=== PATIENT | female | born 1940 | race American Indian/Alaskan Native ===

== ENCOUNTER 2016-08-16 13:42 | Observation (INO) | payer MEDICARE, OTHER ==
--- NOTE | 2016-08-16 14:14 | ED PDOC ---
Arrival/HPI - General Time Seen by Provider: 08/16/16 13:52 Historian: Patient - History of Present Illness Narrative History of Present Illness (Text): 08/16/16 14:10 A 76 year old female, whose past medical history includes hypertension, presents to the emergency department complaining of chest pain and abdominal pain worsening last night, intermittent for the last week. She describes pain as a dull pain. Patient is a poor historian. Patient reports nausea, cough, palpitations, shortness of breath, but denies any vomiting or any other complaints at this time. PMD: Dr. Cruz Time/Duration: 1 week Symptom Onset: Sudden Symptom Course: Unchanged Activities at Onset: Rest Context: Home Associated Symptoms (Text): nausea, cough, shortness of breath, heart palpitations Past Medical History - Provider Review Nursing Documentation Reviewed: Yes - Infectious Disease Hx of Infectious Diseases: None - Tetanus Immunization Tetanus Immunization: Unknown - Cardiac Hx Cardiac Disorders: Yes Hx Hypertension: Yes - Pulmonary Hx Respiratory Disorders: No - Neurological Hx Neurological Disorder: Yes Hx Seizures: Yes - HEENT Hx HEENT Disorder: Yes (wears glasses) - Renal Hx Renal Disorder: No - Endocrine/Metabolic Hx Endocrine Disorders: No - Hematological/Oncological Hx Blood Disorders: No - Integumentary Hx Dermatological Disorder: No - Musculoskeletal/Rheumatological Hx Musculoskeletal Disorders: Yes Hx Gout: Yes - Gastrointestinal Hx Gastrointestinal Disorders: No - Genitourinary/Gynecological Hx Genitourinary Disorders: Yes Hx Incontinence: Yes - Psychiatric Hx Psychophysiologic Disorder: No Hx Substance Use: No - Surgical History Hx Orthopedic Surgery: Yes Other/Comment: right foot bunyon surgery - Anesthesia Hx Anesthesia: Yes Hx Anesthesia Reactions: No Hx Malignant Hyperthermia: No - Suicidal Assessment Feels Threatened In Home Enviroment: No Family/Social History - Physician Review Nursing Documentation Reviewed: Yes Family/Social History: No Known Family HX Smoking Status: Never Smoked Hx Alcohol Use: No Hx Substance Use: No Hx Substance Use Treatment: No Allergies/Home Meds Allergies/Adverse Reactions: Allergies Penicillins Allergy (Verified 10/17/15 19:58) ANAPHYLAXIS Home Medications: Home Meds Medication Instructions Recorded Confirmed Metoprolol Tartrate [Lopressor] 50 mg PO DAILY 07/06/14 10/17/15 Aspirin [Ecotrin] 81 mg PO DAILY 04/06/15 10/17/15 Valsartan 160 mg PO DAILY 04/06/15 10/17/15 Review of Systems - Review of Systems Constitutional: Normal Eyes: Normal ENT: Normal Respiratory: SOB, Cough Cardiovascular: Chest Pain, Palpitations Gastrointestinal: Abdominal Pain, Nausea. absent: Vomiting Genitourinary Female: Normal Musculoskeletal: Normal Skin: Normal Neurological: Normal Endocrine: Normal Hemo/Lymphatic: Normal Psychiatric: Normal Physical Exam Vital Signs Reviewed: Yes Vital Signs Temp Pulse Pulse Resp BP BP Pulse Ox 08/16/16 18:21 77 16 134/76 98 08/16/16 16:46 76 18 132/75 99 08/16/16 15:13 79 18 134/79 99 08/16/16 13:48 98.7 F 84 16 136/85 99 08/16/16 13:43 98.2 F 84 84 16 136/85 136/85 99 Temperature: Afebrile Blood Pressure: Normal Pulse: Regular Respiratory Rate: Normal Appearance: Positive for: Well-Appearing, Non-Toxic, Comfortable Pain Distress: None Mental Status: Positive for: Alert and Oriented X 3 - Systems Exam Head: Present: Atraumatic, Normocephalic Pupils: Present: PERRL Extroacular Muscles: Present: EOMI Conjunctiva: Present: Normal Mouth: Present: Moist Mucous Membranes Neck: Present: Normal Range of Motion Respiratory/Chest: Present: Clear to Auscultation, Good Air Exchange. No: Respiratory Distress, Accessory Muscle Use Cardiovascular: Present: Regular Rate and Rhythm, Normal S1, S2. No: Murmurs Abdomen: Present: Tenderness (mild epigastric), Normal Bowel Sounds. No: Distention, Peritoneal Signs, Rebound, Guarding Back: Present: Normal Inspection Upper Extremity: Present: Normal Inspection. No: Cyanosis, Edema Lower Extremity: Present: Normal Inspection. No: Edema Neurological: Present: GCS=15, CN II-XII Intact, Speech Normal Skin: Present: Warm, Dry, Normal Color. No: Rashes Psychiatric: Present: Alert, Oriented x 3, Normal Insight, Normal Concentration Medical Decision Making ED Course and Treatment: 08/16/16 14:12 Impression: A 76 year old female with chest pain and abdominal pain. Differential Diagnosis included but are not limited to: Plan: -- EKG -- chest xray -- labs -- Urinalysis -- Protonix, Zofran -- Reassess and disposition Prior Visits: Notes and results from previous visits were reviewed. Patient last reported to the emergency on 10/17/15 for evaluation of arm and leg pain. Patient hospitalized for fever, arthralgia and myalgia. Progress Notes: Patient notes she took aspirin earlier today. EKG: Ordered, reviewed, and independently interpreted the EKG. Rate : 88 BPM Rhythm : NSR Interpretation : No ST/T wave changes chest xray: Creator : Jason Garnica MD 08/16/2016 15:40 IMPRESSION: No active disease. CT abd/pelvis Creator : Ilene Rodgers MD 08/16/2016 17:59 IMPRESSION: Moderate constipation. Suspected uterine fibroids. Two probable right hepatic lobe cysts. Additional findings as above. 08/16/16 19:28 will obs for chest pain. dr mata accepts. pt taking po bedside. 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 - Lab Interpretations Lab Results: 08/16/16 14:55 08/16/16 14:55 Lab Results 08/16/16 14:55: Urine Color Yellow, Urine Appearance Clear, Urine pH 6.5, Ur Specific [place] <= 1.005, Urine Protein Negative, Urine Glucose (UA) Negative, Urine Ketones Trace H, Urine Blood Trace-intact H, Urine Nitrate Negative, Urine Bilirubin Negative, Urine Urobilinogen 0.2, Ur Leukocyte Esterase Negative , Urine RBC 0 - 2, Urine WBC 0 - 2 08/16/16 14:55: PT 11.4, INR 1.06, APTT 28.5 08/16/16 14:55: WBC 5.2, RBC 4.75, Hgb 12.9, Hct 39.3, MCV 82.7, MCH 27.2, MCHC 32.8, RDW 14.0, Plt Count 223, MPV 9.5, Gran % 76.6 H, Lymph % (Auto) 17.2 L, [place] % (Auto) 5.4, Eos % (Auto) 0.6 L, Baso % (Auto) 0.2, Gran # 3.97, Lymph # 0.9 L, Mclean # 0.3, Eos # 0.0, Baso # 0.01 08/16/16 14:55: Sodium 140, Potassium 3.4 L, Chloride 102, Carbon Dioxide 29, Anion Gap 12, BUN 12, Creatinine 0.6, Est GFR ( Amer) > 60, Est GFR (Non- Af Amer) > 60, Random Glucose 88, Calcium 10.0, Magnesium 1.9, Total Bilirubin 0.7, AST 24, ALT 22, Alkaline Phosphatase 97, Lactate Dehydrogenase 548, Total Creatine Kinase 153, Troponin I < 0.01, Total Protein 8.7 H, Albumin 4.6, Globulin 4.2, Albumin/Globulin Ratio 1.1, Lipase 38 I have reviewed the lab results: Yes - RAD Interpretation Radiology Orders: 08/16/16 14:06 CHEST PORTABLE [RAD] Stat 08/16/16 15:46 ABD & PELVIS W/O PO OR IV CONT [CT] Stat - EKG Interpretation Interpreted by ED Physician: Yes Type: 12 lead EKG - Medication Orders Current Medication Orders: Acetaminophen (Tylenol 325mg Tab) 650 mg PO Q6H PRN PRN Reason: Fever >100.4 F Aspirin (Ecotrin) 81 mg PO DAILY LUISA Metoprolol Tartrate (Lopressor) 50 mg PO DAILY LUISA Ondansetron HCl (Zofran Inj) 4 mg IVP Q6H PRN PRN Reason: Nausea/Vomiting Oxycodone/Acetaminophen (Percocet 5/325 Mg Tab) 1 tab PO Q4H PRN PRN Reason: Pain, moderate (4-7) Stop: 08/19/16 19:02 Pantoprazole Sodium (Protonix Ec Tab) 40 mg PO 0630 LUISA Phenytoin Sodium (Dilantin) 100 mg PO TID LUISA Polyethylene Glycol (Miralax) 17 gm PO DAILY LUISA Sucralfate (Carafate Oral Susp) 1 gm PO [facility] LUISA Zolpidem Tartrate (Ambien) 5 mg PO HS PRN; Protocol PRN Reason: Insomnia Discontinued Medications Iohexol (Omnipaque 350 100 Ml) Confirm Administered Dose 350 mg .ROUTE .STK-MED ONE Stop: 08/16/16 15:52 Magnesium Citrate (Citrate Of Mag) 300 ml PO ONCE ONE Stop: 08/16/16 19:00 Ondansetron HCl (Zofran Inj) 4 mg IVP STAT STA Stop: 08/16/16 14:07 Last Admin: 08/16/16 15:24 Dose: 4 mg Pantoprazole Sodium (Protonix Inj) 40 mg IVP STAT STA Stop: 08/16/16 14:07 Last Admin: 08/16/16 15:25 Dose: 40 mg Tramadol HCl (Ultram) 50 mg PO TID PRN PRN Reason: Pain, Mild (1-3) - Scribe Statement The provider has reviewed the documentation as recorded by the Mihaelaibe Alexa Ochoa Provider Scribe Attestation: All medical record entries made by the Scribe were at my direction and personally dictated by me. I have reviewed the chart and agree that the record accurately reflects my personal performance of the history, physical exam, medical decision making, and the department course for this patient. I have also personally directed, reviewed, and agree with the discharge instructions and disposition. Disposition/Present on Arrival - Present on Arrival Any Indicators Present on Arrival: No History of DVT/PE: No History of Uncontrolled Diabetes: No Urinary Catheter: No History Surgical Site Infection Following: None - Disposition Have Diagnosis and Disposition been Completed?: Yes Diagnosis: Chest pain, Abdominal pain Disposition: HOME/ ROUTINE Disposition Time: 07:00 Patient Problems: Current Active Problems Problem Status Onset Abdominal pain Acute Chest pain Acute Condition: STABLE
[2016-08-16 15:01] LABS: ADD MANUAL DIFF? NO
[2016-08-16 15:06] LABS: PH,URINE 6.5 (4.7-8.0); URINE BILIRUBIN NEGATIVE (NEGATIVE); URINE BLOOD TRACE-INTACT (NEGATIVE); URINE GLUCOSE (UA) NEGATIVE (NEGATIVE); URINE KETONE TRACE mg/dL (NEGATIVE); URINE LEUKOCYTE ESTERASE NEGATIVE Leu/uL (NEGATIVE); URINE PROTEIN NEGATIVE mg/dL (<30 mg/dL); URINE UROBILINOGEN 0.2 E.U./dL (<1 E.U./dL)
[2016-08-16 15:07] LABS: BASO # 0.01 K/mm3 (0.0-2.0); BASO % 0.2 % (0.0-3.0); EOS % 0.6 % (1.5-5.0); GRAN # 3.97 (1.4-6.5); GRAN % 76.6 % (50.0-68.0); HEMATOCRIT 39.3 % (36.0-48.0); LYMPH # 0.9 (1.2-3.4); LYMPH % 17.2 % (22.0-35.0); MEAN CELL VOLUME 82.7 fL (80.0-105.0); MEAN CORPUSCULAR HEMOGLOBIN 27.2 pg (25.0-35.0); MEAN CORPUSCULAR HGB CONC 32.8 g/dl (31.0-37.0); MEAN PLATELET VOLUME 9.5 fl (7.0-11.0); MONO # 0.3 (0.1-0.6); MONO % 5.4 % (1.0-6.0); PLATELET COUNT 223 10^3/uL (120.0-450.0); WHITE BLOOD COUNT 5.2 10^3/ul (4.5-11.0)
[2016-08-16 15:08] LABS: URINE APPEARANCE CLEAR (CLEAR); URINE COLOR YELLOW (YELLOW)
[2016-08-16 15:10] LABS: URINE RBC 0 - 2 /hpf (0-2); URINE WBC 0 - 2 /hpf (0-6)
[2016-08-16 15:13] LABS: INR 1.06 (0.93-1.08); PARTIAL THROMBOPLASTIN TIME 28.5 Seconds (23.7-30.8)
[2016-08-16 15:19] LABS: ALB/GLOB RATIO 1.1 (1.1-1.8); ALKALINE PHOSPHATASE 97 U/L (38-133); ALT/SGPT 22 U/L (7-56); AST/SGOT 24 U/L (15-39); BILIRUBIN,TOTAL 0.7 mg/dL (0.2-1.3); BLOOD UREA NITROGEN 12 mg/dL (7-21); CARBON DIOXIDE 29 mmol/L (21-33); CHLORIDE 102 mmol/L (98-107); GFR AFRICAN-AMERICAN > 60; GLUCOSE,RANDOM 88 mg/dL (70-110); LIPASE 38 U/L (23-300); MAGNESIUM 1.9 mg/dL (1.7-2.2); POTASSIUM 3.4 mmol/L (3.6-5.0); SODIUM 140 mmol/L (132-148); TOTAL PROTEIN 8.7 g/dL (5.8-8.3)
[2016-08-16 15:31] LABS: TROPONIN I < 0.01 ng/mL
--- NOTE | 2016-08-16 15:39 | RAD ---
HISTORY: cp COMPARISON: 10/17/2015 FINDINGS: LUNGS: No active pulmonary disease. PLEURA: No significant pleural effusion identified, no pneumothorax apparent. CARDIOVASCULAR: Mild cardiomegaly OSSEOUS STRUCTURES: No significant abnormalities. VISUALIZED UPPER ABDOMEN: Normal. OTHER FINDINGS: None. IMPRESSION: No active disease.
[2016-08-16] MEDS ORDERED: Iohexol 350 MG/100 ML VIAL ONE (15:51)
--- NOTE | 2016-08-16 17:57 | CT ---
PROCEDURE: CT Abdomen and Pelvis without Oral or IV contrast. HISTORY: diffuse abd pain COMPARISON: CT abdomen and pelvis with oral and IV contrast performed 05/20/15 TECHNIQUE: Contiguous axial images of the abdomen and pelvis. No oral or IV contrast administered. Coronal and Sagittal reformats generated and reviewed. Radiation dose: Total exam DLP = 484.17 mGy-cm. This CT exam was performed using one or more of the following dose reduction techniques: Automated exposure control, adjustment of the mA and/or kV according to patient size, and/or use of iterative reconstruction technique. FINDINGS: There is limited evaluation of the solid organs without the administration of IV contrast. LOWER THORAX: Mild bibasilar atelectasis. No visible pleural effusion or pneumothorax. LIVER: At least 2 small right hepatic lobe hypodensities appear cystic. GALLBLADDER AND BILE DUCTS: Unremarkable unenhanced appearance. PANCREAS: Pancreatic duct appears top normal in diameter (approximately 3 mm). Unremarkable unenhanced appearance. SPLEEN: Unremarkable unenhanced appearance. ADRENALS: Unremarkable unenhanced appearance. KIDNEYS AND URETERS: No hydronephrosis or obstructing renal calculus. BLADDER: The urinary bladder appears unremarkable. REPRODUCTIVE: Uterus is present. Uterine calcifications, likely related to fibroids. APPENDIX: The appendix appears within normal limits of caliber. No secondary signs of acute appendicitis. BOWEL: The stomach is nondistended. Lack of oral contrast limits evaluation for bowel pathology. The bowel loops appear within normal limits of caliber without evidence of intestinal obstruction. Moderate constipation. PERITONEUM: No significant free fluid. No definite free air. LYMPH NODES: Bilateral prominent but sub cm inguinal adenopathy, nonspecific. VASCULATURE: No aortic aneurysm. BONES: Degenerative changes of the spine. Osseous demineralization. OTHER FINDINGS: Small fat containing umbilical hernia. IMPRESSION: Moderate constipation. Suspected uterine fibroids. Two probable right hepatic lobe cysts. Additional findings as above.
[2016-08-16] MEDS ORDERED: Magnesium Citrate Oral SOL (300 ml) PO ONE (18:59)
[2016-08-16] MEDS ORDERED: Oxycodone/Acetaminophen 5/325 mg Tab PO PRN (19:01)
--- NOTE | 2016-08-16 21:17 | HP ---
HISTORY OF PRESENT ILLNESS: The patient is a 76-year-old, seen and examined. Came to Emergency Room because of chest discomfort. She also has abdominal discomfort going off and on for the last day or two. Her abdominal pain started last night and she has dull abdominal pain. Complains of poo r appetite, does complain of having some nausea. She also had multiple vague complaints including co ugh, mild shortness of breath, but says she did not have any vomiting, no hemoptysis, no hematemesis. PAST MEDICAL HISTORY: 1. Hypertension. 2. Severe bilaterally knee osteoarthritis. 3. Degenerative disk disease. 4. Questionable seizure disorder. 5. Hyperlipidemia. The patient presented to Emergency Room multiple times with chest pain, had a cardiac catheterization done that shows no evidence of obstructive coronary artery disease, normal left ventricle; that was in 04/2015. She also had an endoscopy done in April of last year, which showed chronic inflammati on and reactive epithelial changes. No H. pylori. ALLERGIES: SHE IS ALLERGIC TO PENICILLIN. MEDICATIONS AT HOME: She is on tramadol 50 mg 3 times a day, valsartan 160 daily, Carafate. She is on Dilantin 100 mg 3 times a day, metoprolol 50 mg daily, and Mobic 15 mg daily, aspirin 81 daily, Pe pcid 20 mg twice a day. SOCIAL HISTORY: She is single, lives with her son. Denies smoking, drinking or alcohol use. REVIEW OF SYSTEMS: Significant for chest discomfort, abdominal discomfort. PHYSICAL EXAMINATION: GENERAL: She is awake and alert, communicative. VITAL SIGNS: She is afebrile, pulse , respirations 16, blood pressure 134/76. LUNGS: Bilateral fair airflow, no rhonchi or crackle. HEART: S1, S2 audible. ABDOMEN: Soft, nontender, no rebound, no guarding. NEUROLOGIC: The patient is awake and alert, able to communicate. Moves all extremities. No leg simone ma. LABORATORY DATA: WBC 5.2, hemoglobin 12.9, hematocrit 39.3, platelet 223. PT 11.4, INR 1.06. Chemi stry: Sodium 140, potassium 3.4, chloride 102, CO2 29, BUN 12, creatinine 0.6, blood sugar of 88. L FTs are within normal limits. Urine shows trace blood and trace ketones. She had CT scan of the abd omen and pelvis done that shows uterine fibroid and right hepatic lobe cyst, moderate constipation. X-ray of the chest is unremarkable. ASSESSMENT: 1. Chest pain seems to be atypical. Her cardiac cath done last year in April was unremarkable. 2. Hypertension. 3. Questionable seizure disorder. 4. Bilateral severe knee osteoarthritis. 5. Gastritis. PLAN: We will place the patient in observation. We will follow up cardiac enzymes. Cardiology con sult by Dr. Perez has been requested. Will start her on PPI and analgesic as needed. We will follow up patient in a.m. Epifanio Cruz MD cc: [phone] TT: 08/16/2016 21:17:20 ln
[2016-08-16] MEDS: Sucralfate 1 gm/10 ml Oral Susp UD PO SCH (22:13)
[2016-08-17 01:35] VITALS: BMI 29.2
[2016-08-17] MEDS: Pantoprazole 40 mg EC Tab PO SCH (06:22)
[2016-08-17 07:22] LABS: ADD MANUAL DIFF? NO
[2016-08-17 07:33] LABS: BASO # 0.02 K/mm3 (0.0-2.0); BASO % 0.4 % (0.0-3.0); EOS % 0.8 % (1.5-5.0); GRAN % 80.2 % (50.0-68.0); HEMATOCRIT 37.5 % (36.0-48.0); LYMPH # 0.6 (1.2-3.4); LYMPH % 13.1 % (22.0-35.0); MEAN CELL VOLUME 83.5 fL (80.0-105.0); MEAN CORPUSCULAR HEMOGLOBIN 27.2 pg (25.0-35.0); MEAN CORPUSCULAR HGB CONC 32.5 g/dl (31.0-37.0); MEAN PLATELET VOLUME 9.4 fl (7.0-11.0); MONO # 0.3 (0.1-0.6); MONO % 5.5 % (1.0-6.0); PLATELET COUNT 204 10^3/uL (120.0-450.0); RED CELL DISTRIBUTION WIDTH 14.2 % (11.5-14.5); WHITE BLOOD COUNT 4.9 10^3/ul (4.5-11.0)
[2016-08-17 07:35] LABS: ALB/GLOB RATIO 1.1 (1.1-1.8); ALKALINE PHOSPHATASE 86 U/L (38-133); ALT/SGPT 27 U/L (7-56); AST/SGOT 22 U/L (15-39); BILIRUBIN,TOTAL 0.5 mg/dL (0.2-1.3); BLOOD UREA NITROGEN 12 mg/dL (7-21); CALCIUM 9.3 mg/dL (8.4-10.5); CARBON DIOXIDE 32 mmol/L (21-33); CHLORIDE 104 mmol/L (98-107); GFR AFRICAN-AMERICAN > 60; GLUCOSE,RANDOM 81 mg/dL (70-110); MAGNESIUM 2.4 mg/dL (1.7-2.2); SODIUM 142 mmol/L (132-148); TOTAL PROTEIN 7.9 g/dL (5.8-8.3)
[2016-08-17] MEDS: Sucralfate 1 gm/10 ml Oral Susp UD PO SCH ×2 (07:50→21:35)
[2016-08-17 07:51] LABS: FREE T4 1.16 ng/dL (0.78-2.19)
[2016-08-17 08:06] LABS: THYROID STIMULATING HORMONE 0.4 mIU/mL (0.46-4.68)
[2016-08-17] MEDS: POLYETHYLENE GLYCOL 3350 17 GM/Dose PACKET PO SCH ×2 (09:08)
--- NOTE | 2016-08-17 10:07 | CARD ---
APPROVED REPORT EKG Measurement Heart [id number] <Conclusion> Normal sinus rhythm Left axis deviation PRWP, Possible anterior TX, old NSSTW changes No change
[2016-08-17] MEDS ORDERED: Naproxen 550 mg Tab PO STA (11:17)
[2016-08-17] MEDS: Naproxen 550 mg Tab PO SCH ×2 (11:39→17:24)
--- NOTE | 2016-08-17 15:37 | DS ---
The patient is a 76-year-old, seen and examined. She states she feels a little better. She has a co uple of bowel movements; still has some chest discomfort, more with movement. PHYSICAL EXAMINATION: VITAL SIGNS: She is afebrile, pulse 85, respirations 18, blood pressure 123/78. LUNGS: Bilateral fair airflow, no rhonchi or crackle. HEART: S1, S2 audible. ABDOMEN: Soft, nontender, no rebound, no guarding. NEUROLOGIC: She is awake and alert, able to communicate. Moves all extremities. LABORATORY EXAM: Sodium 142, potassium 4.0, chloride 104, CO2 32, BUN 12, creatinine 0.7, blood suga r of 81. Two sets of cardiac enzymes are negative. Urinalysis is unremarkable. Hypokalemia has bee n corrected. CT scan of the abdomen and pelvis showed constipation with right hepatic cyst and uteri ne fibroid. PLAN: The patient will be evaluated by member service specialist and her pain seems to be subsiding. Her abdomin al pain has improved. She is eating and tolerating. I will give her a dose of Naprosyn and after th e patient is seen by member service specialist and cleared, she can be discharged home later on in the afternoon a nd she should be followed up in office in a week or 2. Epifanio Cruz MD cc: [phone] TT: 08/17/2016 15:36:54 hi
[2016-08-17] MEDS ORDERED: Naproxen 550 mg Tab PO SCH (18:00)
[2016-08-18 00:57] VITALS: O2SAT 100
[2016-08-18] MEDS: Pantoprazole 40 mg EC Tab PO SCH (05:29)
[2016-08-18] MEDS: Sucralfate 1 gm/10 ml Oral Susp UD PO SCH ×2 (07:59→21:26)
[2016-08-18] MEDS: Naproxen 550 mg Tab PO SCH ×2 (09:53→17:28)
[2016-08-18] MEDS: POLYETHYLENE GLYCOL 3350 17 GM/Dose PACKET PO SCH (09:53)
--- NOTE | 2016-08-18 10:55 | PN ---
DATE: 08/18/2016 SUBJECTIVE: The patient complains of abdominal discomfort. She said she also is having reflux sympt oms. She has no complaints of any nausea, no vomiting. She does complain of headaches and fatigue. PHYSICAL EXAMINATION: VITAL SIGNS: Temperature is 98, pulse of 82, blood pressure 138/81, respirations 20. GENERAL: The patient comfortable, in no acute distress. HEENT: Anicteric sclerae. Moist mucosa. NECK: No JVD or adenopathy. CARDIAC: S1/S2. No murmurs. No rubs. Regular. RESPIRATORY: Clear to auscultation bilaterally. No wheezes, rales, or rhonchi. Good air entry. ABDOMEN: Bowel sounds are positive, soft, nontender, and nondistended. EXTREMITIES: No edema. Has 1+ pulses. LABORATORIES: White count of 4.9, hemoglobin 12.2. Creatinine 0.7. ASSESSMENT: 1. Constipation. 2. Gastroesophageal reflux disease. 3. Uterine fibroids. 4. Hypertension. 5. Osteoarthritis. PLAN: The patient is to go home today, but waiting for cardiac evaluation. The patient is on Dilant in for seizures. She is on metoprolol. She is going to continue on MiraLax for constipation. She d id have a good bowel movement according to her. The patient is on Ambien for sleep. She has 2 cardi ac enzymes which are negative. If cleared by cardiology, she may be discharged home today. Geraldo Thapa MD cc: [phone] TT: 08/18/2016 10:54:46 Confirmation # [id number] Dictation # [id number]
--- NOTE | 2016-08-18 15:54 | CON ---
DATE: 08/18/2016 (For Chris) HISTORY OF PRESENT ILLNESS: The patient is a 76-year-old woman who presented with atypical right-ashia ed chest pain. The patient states this feels like acid reflux. The patient has had extensive cardiac workup including cardiac catheterization last year, which shows no significant coronary blockages. PAST MEDICAL HISTORY: Is notable for hypertension with questionable peptic ulcer disease in the past . She denies diabetes mellitus. No previous myocardial infarction. SOCIAL HISTORY: Negative smoker. REVIEW OF SYSTEMS: Predominantly right-sided and epigastric discomfort. PHYSICAL EXAMINATION: VITAL SIGNS: Blood pressure is 141/94, the heart rate is in the 70's. NECK: Negative JVD. LUNGS: Without rales. HEART: Reveals S1, S2. EXTREMITIES: Without edema. Shows normal sinus rhythm with left anterior hemiblock. LABORATORIES: Reveal troponins that are negative x 2. The hemoglobin is 12.2. IMPRESSION: 1. Epigastric and right-sided chest pain. 2. No evidence for acute coronary syndrome. 3. Need to rule out peptic ulcer disease. 4. Hypertension. 5. History of a cardiac catheterization, which showed unremarkable coronary arteries. Given these findings, will give the patient a stat dose of Protonix. Will discontinue telemetry toda y. The patient may need a GI workup. Marcelino Chacon MD cc: [phone] TT: 08/18/2016 15:54:04 Confirmation # [id number] Dictation # [id number] dn
[2016-08-18 18:37] VITALS: RESP 20
[2016-08-19] MEDS: Pantoprazole 40 mg EC Tab PO SCH (05:48)
[2016-08-19] MEDS: Sucralfate 1 gm/10 ml Oral Susp UD PO SCH (08:10)
[2016-08-19] MEDS ORDERED: Magnesium Citrate Oral SOL (300 ml) PO ONE (10:06)
[2016-08-19] MEDS: Naproxen 550 mg Tab PO SCH (10:23)
[2016-08-19] MEDS: POLYETHYLENE GLYCOL 3350 17 GM/Dose PACKET PO SCH (10:24)
[2016-08-19 12:55] VITALS: BP 142/94; PULSE 66; TEMP 98.4
--- NOTE | 2016-08-19 15:03 | US ---
HISTORY: abdominal pain COMPARISON: None. TECHNIQUE: Sonographic evaluation of the abdomen. FINDINGS: LIVER: Measures cm. Normal echogenicity of the liver parenchyma. No mass. No intrahepatic bile duct dilatation. Scattered right hepatic cysts measuring up to 18 millimeters in the right hepatic lobe. GALLBLADDER: Unremarkable. No gallstones. COMMON BILE DUCT: Measures mm. No stones. No dilatation. PANCREAS: Unremarkable as visualized. No mass. No ductal dilatation. RIGHT KIDNEY: Measures cm. Normal echogenicity. No calculus, mass, or hydronephrosis. LEFT KIDNEY: Measures cm. Normal echogenicity. No calculus, mass, or hydronephrosis. SPLEEN: Normal in size and contour. No mass. AORTA: No aneurysmal dilatation. IVC: Unremarkable. OTHER FINDINGS: None. IMPRESSION: Hepatic cysts.
[2016-08-19 15:37] LABS: TROPONIN I < 0.01 ng/mL
--- NOTE | 2016-08-19 18:56 | CON ---
DATE: 08/19/2016 Seen and examined at the bedside earlier this morning. The chart was reviewed. REQUEST FOR CONSULT: For epigastric pain. HISTORY OF PRESENT ILLNESS: This is a 76-year-old female with a past medical history of hypertension and esophagitis, came to the Emergency Room with complaints of chest pain and abdominal pain. The p atient states it has been intermittent for about a week. No complaints of any nausea, shortness of b reath, does complain of poor appetite. No reports of any hematemesis, hemoptysis or weight loss. He r last endoscopy was done back in [address] Junior and that was done for epigastric abdominal pain , dyspepsia and heartburn. She was found to have LA grade B reflux esophagitis, a small hiatal herni a and nonbleeding erosive gastropathy. Biopsies were negative for any intestinal metaplasia or any H . pylori; it showed chronic inflammation. She did report having a colonoscopy many years ago. She f ollows up with Dr. Cruz in her outpatient office. The patient stated that she was given a prescri ption for a colonoscopy and had just had not scheduled that. The patient has history of cardiac work up including cardiac catheterization last year which was negative for any coronary blockage. PAST MEDICAL HISTORY: As stated above, hypertension, LA grade B esophagitis, nonbleeding erosive gas tropathy, biopsies negative osteoarthritis of the knees, and hyperlipidemia. PAST SURGICAL HISTORY: The patient denies any abdominal surgery. FAMILY HISTORY: Noncontributory at this time. SOCIAL HISTORY: Denies smoking, drinking alcohol or drug use. MEDICATIONS: Reviewed as per MAR. ALLERGIES: PENICILLIN. REVIEW OF SYSTEMS: Systems reviewed with positive findings, see HPI. VITAL SIGNS: Temperature is 98.3, blood pressure is 136/70, pulse 75, respirations 20, and 100% on r oom air. LABORATORY DATA: From 08/17, WBC is 4.9, hemoglobin is 12.2, hematocrit 37.5, platelets of 204. PT is from 08/16/2016 and that is 11.4, INR is 1.06, PTT 28.5. Sodium is from 08/17 and it is 142, K 4. 0 and on admission it was 3.4. This is improved. BUN 12, creatinine 0.7, magnesium 2.4. Her liver enzymes are within normal limits and troponin is negative x 2. She did have a lipase level on admiss ion; it was 38. Her free T4 is 1.16. TSH 3rd generation is low at 0.40. She did have a chest x-ray on admission and that was negative for pulmonary disease, pleural effusion or no pneumothorax; it sh owed mild cardiomegaly. CT scan on admission: Abdomen and pelvis without any contrast reported lack of oral contrast limits evaluation for bowel pathology, stomach is nondistended. The bowel loops ap pear within normal limits of caliber without evidence of intestinal obstruction. There is moderate c onstipation. Gallbladder and bile duct are unremarkable. Liver, there was at least 2 small right he patic lobe hypodensities that appear cystic. Bilateral prominence but , inguinal adenopathy non specific, and suspected uterine fibroids. Ultrasound was done this morning and the final report is n ot available yet. The preliminary report does show liver cysts x 2. The common bile duct measures 0 .65 mm. No gallstones are seen. PHYSICAL EXAMINATION: HEENT: Sclerae are anicteric. NECK: Supple. CARDIAC: S1, S2. LUNGS: Sounds are clear. ABDOMEN: With bowel sounds, soft. There is no tenderness at this time. No rebound, guarding, or or ganomegaly. EXTREMITIES: Positive pedal pulses, no edema. NEUROLOGIC: Awake, alert, and oriented. ASSESSMENT: Atypical chest pain, rule out any peptic ulcer disease. The patient has history of GERD . She does have a history of LA grade B esophagitis and nonerosive gastropathy, constipation, histor y of hypertension, osteoarthritis, and on CT scan and ultrasound reporting 2 simple liver cysts. PLAN: We discussed with the patient. We will give the patient a dose of magnesium citrate x 1. The patient states she takes Senokot at home, but we will give her a dose of magnesium citrate, and she is already on MiraLax and continue her on Protonix 40 mg daily, and follow up the final report of abd ominal ultrasound. Discussed with the patient and Dr. Cruz regarding elective outpatient endoscop y can be done and the patient would also benefit from a colonoscopy. The patient is to follow up lurdes Cruz and the patient to follow up in our outpatient office and we can schedule for outpatien t endoscopy and colonoscopy evaluation. Thank you for this consult and for allowing us to participate in your patient's care. The patient wa s seen and case discussed with Dr. Owens. Daphne OVIEDO cc: [id number] TT: 08/19/2016 18:56:12 Confirmation # [id number] Dictation # [id number] mn
--- NOTE | 2016-08-19 21:33 | DS ---
The patient is 76 years old. She is seen and examined sitting in chair. She states she feels a lot better. No chest pain, has epigastric discomfort, had a couple of bowel movements but feels soft and better, eating and tolerating. PHYSICAL EXAMINATION: VITAL SIGNS: She is afebrile, pulse 75, respirations 20, blood pressure 136/70. LUNGS: Bilateral fair airflow, no rhonchi or crackle. HEART: S1, S2 audible. ABDOMEN: Soft, nontender, no rebound, no guarding. NEUROLOGIC: The patient is awake and alert, communicative. Ambulates with a cane. ASSESSMENT: 1. Noncardiac chest pain. 2. Constipation. 3. Questionable peptic ulcer disease. 4. Seizure disorder. 5. Hypertension. 6. Bilateral knee osteoarthritis. PLAN: The patient just had magnesium citrate given. Will wait for the result, and she will be disch arged around 4:00 today and she will follow with me and Dr. Owens as outpatient. Epifanio Cruz MD cc: [id number] TT: 08/19/2016 21:32:04 cm
--- NOTE | 2016-08-19 21:36 | CON ---
DATE: 08/19/2016 This patient was seen and evaluated earlier today. This 76-year-old patient with a past medical hist ory of hypertension, arthritis, degenerative disk disease, seizure disorder, and dyslipidemia. initi ally admitted with abdominal pain, epigastric and right upper quadrant area, and mild shortness of br eath. The patient was evaluated by the cardiology, Dr. Chacon, who felt that the abdominal pain is pro bably noncardiac. No evidence of acute coronary syndrome. The patient did have a CT scan on admissi on which showed constipation and had a large amount of stool in the colon and also hepatic cyst. The patient continued to have abdominal discomfort and GI consultation was requested to evaluate this. The patient was admitted to the [facility], had an upper GI endoscopy done in 10/[address] Hines in and was found to have gastritis, H. pylori negative. The patient is still complaining of some dis comfort in the epigastric and right upper quadrant area. PHYSICAL EXAMINATION: ABDOMEN: Soft. There was tenderness present in the epigastric and right upper quadrant area. No re bound or guarding, no mass palpable. LABORATORY DATA: Review of the labs, hemoglobin 12.2, hematocrit 37.5, WBC is 4.9, platelets 204. C hemistry is essentially unremarkable. The sonogram was done which was reviewed and showed no gallsto tori. CBD normal. IMPRESSION: This 76-year-old patient admitted with abdominal pain and some shortness of breath and t he patient has persistent some discomfort in the epigastric and right upper quadrant area. CT sonogram done and reviewed. History of upper gastrointestinal endoscopy done in October reviewed. Be en evaluated by the med surg rn, suspect noncardiac. The differential diagnosis should include pept ic ulcer disease, erosive esophagitis and also colonic lesion to be considered. RECOMMENDATIONS: 1. A bottle of of magnesia today to clean out her bowels. 2. The patient was advised to take stool softeners and/or MiraLax on a regular basis at home. 3. Would benefit from elective EGD and colonoscopy. We will discuss with Dr. Cruz again. Thank you very much for allowing us to participate in the care of the patient. Nestor Owens MD cc: [id number] TT: 08/19/2016 21:35:49 Confirmation # [id number] Dictation # [id number] mn
--- NOTE | 2016-08-20 08:08 | PN ---
DATE: 08/19/2016 REASON FOR CONSULTATION: Cardiac evaluation, admitted with chest pain, atypical. BRIEF CLINICAL HISTORY: This is a 76-year-old female with past medical history significant for nonob structive coronary artery disease, essentially normal, status post cardiac catheterization, admitted with epigastric pain, abdominal pain and leg pain. Denies any chest pain. PAST MEDICAL HISTORY: Significant for hypertension, diabetes, hyperlipidemia, orthostatic, seizure d isorder, arthritis, history of gout. History of cardiac catheter[facility] by Dr. George Bowers at [facility] showed nonobstructive coronary artery disease, essentially normal cardiac catheterization, charles l coronaries, ejection fraction 55%. SOCIAL HISTORY: Denies any smoking. Denies any history of alcohol abuse. The patient had cardiac catheterization after the abnormal stress test in [place]. PREVIOUS CARDIAC WORKUP: As follows: The patient's stress test was abnormal, so patient underwent c ardiac catheterization at [facility] by Dr. George Bowers dated 01/03/2015 that sh ows essentially normal left main, LAD normal, circumflex normal, normal RCA, ejection fraction 55%, e ssentially normal coronaries, dated 01/03/2015. The patient had echocardiography done 07/06/2014 dimitris t showed ejection fraction 65%, normal LV wall motion, mild to moderate aortic regurgitation, mild to moderate mitral regurgitation, mild to moderate tricuspid regurg, RV systolic pressure 45. PHYSICAL EXAMINATION: VITAL SIGNS: Temperature afebrile, heart rate 60, blood pressure 121/72. HEENT: PERRLA. Extraocular muscles intact. NECK: Supple. No carotid bruits. No thyromegaly. CHEST: Clear to auscultation. HEART: S1, S2 regular. ABDOMEN: Soft. EXTREMITIES: Clubbing and cyanosis negative. BLOOD WORKUP: As follows: WBC 4.____, hemoglobin 12.2, hematocrit 37.5, platelet count 204. Chemis try shows sodium 140, potassium 4, chloride 104, carbon dioxide 32, anion gap of 10, BUN 12, creatini ne 0.7. No evidence of acute myocardial infarction. Atypical chest pain. Negative extensive cardiac workup. SUGGEST: Discontinue telemetry. No further cardiac workup is planned at this time. The patient had a repeat cardiac catheterization ____ by Dr. George Bowers at ____ dated 04/13/2015 that shows no angiographic evidence of obstructive coronary artery disease, preserved left ventricular function, s econd catheterization, so we will discontinue telemetry. No further cardiac workup is planned at thi s time. Thank you, Dr. Cruz, for providing the opportunity in taking care of this patient. Darrick Perez MD cc: [id number] TT: 08/19/2016 16:32:27 Confirmation # [id number] Dictation # [id number] mn
== END 2016-08-19 18:37 | disposition home or self-care (01) ==
LOC: ED 13:42 → ERH 18:38 → INTOOBSV 18:38 → ERH 22:37 → 2RNO 08-17 00:46
PROVIDERS: ADMIT Internal Medicine; ATTEND Internal Medicine
DX: R07.89 Other chest pain (principal); K21.0 Gastro-esophageal reflux disease with esophagitis; I25.10 Atherosclerotic heart disease of native coronary artery without angina pectoris; K59.00 Constipation, unspecified; G40.909 Epilepsy, unspecified, not intractable, without status epilepticus; I10 Essential (primary) hypertension; M17.0 Bilateral primary osteoarthritis of knee; D25.9 Leiomyoma of uterus, unspecified; K76.89 Other specified diseases of liver; E78.5 Hyperlipidemia, unspecified; K29.70 Gastritis, unspecified, without bleeding; M10.9 Gout, unspecified; E11.9 Type 2 diabetes mellitus without complications; I08.3 Combined rheumatic disorders of mitral, aortic and tricuspid valves
CPT/HCPCS: 36415; 71010; 74176; 76700; 80053; 81001; 82550; 83036; 83615; 83690; 83735; 84439; 84443; 84484; 85025; 85610; 85730; 93005; 96374; 96375; 96376; 99285; C9113; G0378; J2405; Q9967

== ENCOUNTER 2017-03-24 18:12 | Emergency (ER) | payer MEDICARE, OTHER ==
[2017-03-24 19:29] VITALS: PULSE 78; TEMP 98.6
[2017-03-24 19:55] LABS: BASO # 0.02 K/mm3 (0.0-2.0); BASO % 0.3 % (0.0-3.0); EOS # 0.1 (0.0-0.7); EOS % 1.2 % (1.5-5.0); GRAN # 5.33 (1.4-6.5); GRAN % 81.8 % (50.0-68.0); HEMOGLOBIN 10.1 g/dL (12.0-16.0); LYMPH # 0.7 (1.2-3.4); LYMPH % 10.9 % (22.0-35.0); MEAN CORPUSCULAR HEMOGLOBIN 25.6 pg (25.0-35.0); MEAN CORPUSCULAR HGB CONC 31.2 g/dl (31.0-37.0); MEAN PLATELET VOLUME 8.8 fl (7.0-11.0); MONO # 0.4 (0.1-0.6); MONO % 5.8 % (1.0-6.0); RBC 3.95 10^6/uL (3.5-6.1); RED CELL DISTRIBUTION WIDTH 14.1 % (11.5-14.5); WHITE BLOOD COUNT 6.5 10^3/ul (4.5-11.0)
[2017-03-24 20:48] LABS: ALB/GLOB RATIO 0.9 (1.1-1.8); ALBUMIN 3.9 g/dL (3.0-4.8); ALT/SGPT 21 U/L (7-56); AST/SGOT 33 U/L (14-36); BLOOD UREA NITROGEN 16 mg/dL (7-21); CALCIUM 9.6 mg/dL (8.4-10.5); GFR AFRICAN-AMERICAN > 60; GFR NON-AFRICAN AMERICAN > 60
[2017-03-24] MEDS ORDERED: Tmp-Smz 800 mg-160 mg DS Tab PO STA (21:13)
[2017-03-24 21:43] VITALS: BP 139/78; RESP 19; O2SAT 99
--- NOTE | 2017-03-24 21:56 | ED PDOC ---
Arrival/HPI - General Chief Complaint: Lower Extremity Problem/Injury Time Seen by Provider: 03/24/17 19:07 Historian: Patient - History of Present Illness Narrative History of Present Illness (Text): 03/24/17 19:21 A 76 year old female, whose past medical history includes hypertension, presents to the emergency department complaining of bilateral foot pain and itchiness increasing for past week. Patient reports also experiencing mild redness to both feet. Patient denies any fever, cough, shortness of breath, chest pain, trauma to feet, or any other complaints. PMD: Dr. Pati Hardin Time/Duration: 1 week Symptom Onset: Gradual Symptom Course: Unchanged Past Medical History - Provider Review Nursing Documentation Reviewed: Yes - Infectious Disease Hx of Infectious Diseases: None - Tetanus Immunization Tetanus Immunization: Unknown - Cardiac Hx Cardiac Disorders: Yes Hx Angina: No Hx Cardiac Arrhythmia: No Hx Circulatory Problems: No Hx Congestive Heart Failure: No Hx Heart Murmur: No Hx Heart Transplant: No Hx Hypertension: Yes Hx Internal Defibrillator: No Hx Mitral Valve Prolapse: No Hx Pacemaker: No Hx Peripheral Edema: No Hx Peripheral Vascular Disease: No - Pulmonary Hx Respiratory Disorders: No Hx Asthma: No Hx Bronchitis: No Hx Chronic Obstructive Pulmonary Disease (COPD): No Hx Emphysema: No Hx Pneumonia: No Hx Respiratory Aspiration: No Hx Respiratory Tract Infection: No Hx Sleep Apnea: No Hx Tuberculosis: No - Neurological Hx Neurological Disorder: Yes Hx Alzheimer's Disease: No HX Cerebrovascular Accident: No Hx Dementia: No Hx Dizziness: No Hx Meningitis: No Hx Migraine: No Hx Parkinson's Disease: No Hx Seizures: Yes Hx Transient Ischemic Attacks (TIA): No - HEENT Hx HEENT Disorder: Yes (wears glasses) Hx Blind: No Hx Cataracts: No Hx Deafness: No Hx Difficulty Chewing: No Hx Epistaxis: No Hx Glaucoma: No Hx Macular Degeneration: No - Renal Hx Renal Disorder: No Hx Dialysis: No Hx Kidney Stones: No Hx Neurogenic Bladder: No Hx Pyelonephritis: No Hx Renal Cancer: No Hx Renal Failure: No - Endocrine/Metabolic Hx Endocrine Disorders: No Hx Adrenal Cancer: No Hx Diabetes Insipidus: No Hx Diabetes Mellitus Type 1: No Hx Diabetes Mellitus Type 2: No Hx Hyperthyroidism: No Hx Hypothyroidism: No Hx Systemic Lupus Erythematosus: No - Hematological/Oncological Hx Blood Disorders: No Hx AIDS: No Hx Anemia: No Hx Cancer: No Hx Chemotherapy: No Hx Cirrhosis: No Hx Hemophilia: No Hx Hepatitis A: No Hx Hepatitis B: No Hx Hepatitis C: No Hx Metastasis: No Hx Shingles: No Hx Sickle Cell Disease: No Hx Unexplained Bleeding: No - Integumentary Hx Dermatological Disorder: No Hx Basal Cell Carcinoma: No Hx Eczema: No Hx Melanoma: No Hx Psoriasis: No Hx Squamous Cell Carcinoma: No - Musculoskeletal/Rheumatological Hx Musculoskeletal Disorders: Yes Hx Arthritis: Yes Hx Back Pain: Yes Hx Degenerative Joint Disease: No Hx Falls: No Hx Fractures: No Hx Gout: Yes Hx Herniated Disk: No Hx Myasthenia Gravis: No Hx Osteoarthritis: No Hx Osteomyelitis: No Hx Osteoporosis: No Hx Rhabdomyolysis: No Hx Spinal Stenosis: No Hx Unsteady Gait: No (uses a cane) - Gastrointestinal Hx Gastrointestinal Disorders: Yes (constipation) Hx Colostomy: No Hx Crohn's Disease: No Hx Diverticulitis: No Hx Gall Bladder Disease: No Hx Gastroesophageal Reflux: No Hx Gastrointestinal Ulcer: No Hx Ileostomy: No Hx Liver Failure: No Hx Pancreatitis: No HX Swallowing Problems: No - Genitourinary/Gynecological Hx Genitourinary Disorders: No Hx Hematuria: No Hx Incontinence: No Hx Prostate Problems: No Hx Sexually Transmitted Diseases: No Hx Urinary Tract Infection: No - Psychiatric Hx Psychophysiologic Disorder: No Hx Anxiety: No Hx Bipolar Disorder: No Hx Depression: No Hx Emotional Abuse: No Hx Hallucinations: No Hx Panic Disorder: No Hx Post Traumatic Stress Disorder: No Hx Psychosis: No Hx Physical Abuse: No Hx Schizophrenia: No Hx Sexual Abuse: No Hx Substance Use: No - Surgical History Hx Amputation: No Hx Appendectomy: No Hx Cardiac Catheterization: No Hx Cholecystectomy: No Hx Coronary Stent: No Hx Gastric Bypass Surgery: No Hx Hysterectomy: No Hx Joint Replacement: No Hx Kidney Transplant: No Hx Liver Transplant: No Hx Mastectomy: No Hx Musculoskeletal Surgery: No Hx Open Heart Surgery: No Hx Orthopedic Surgery: No Hx Splenectomy: No Hx Valve Replacement: No - Anesthesia Hx Anesthesia: Yes Hx Anesthesia Reactions: No Hx Malignant Hyperthermia: No - Suicidal Assessment Feels Threatened In Home Enviroment: No Family/Social History - Physician Review Nursing Documentation Reviewed: Yes Family/Social History: No Known Family HX Smoking Status: Former Smoker Hx Alcohol Use: No Hx Substance Use: No Hx Substance Use Treatment: No Allergies/Home Meds Allergies/Adverse Reactions: Allergies Penicillins Allergy (Verified 10/17/15 19:58) ANAPHYLAXIS Home Medications: Home Meds Medication Instructions Recorded Confirmed Metoprolol Tartrate [Lopressor] 50 mg PO DAILY 07/06/14 03/24/17 Aspirin [Ecotrin] 81 mg PO DAILY 04/06/15 03/24/17 Review of Systems - Physician Review All systems were reviewed & negative as marked: Yes - Review of Systems Constitutional: absent: Fevers, Other (no trauma to feet) Respiratory: absent: SOB, Cough Cardiovascular: absent: Chest Pain Musculoskeletal: Other (foot pain bilaterally) Skin: Pruritis (both feet), Other (mild redness to both feet) Physical Exam Vital Signs Reviewed: Yes Vital Signs Temp Pulse Resp BP Pulse Ox 03/24/17 21:41 78 19 139/78 99 03/24/17 19:24 98.6 F 78 18 148/88 100 Temperature: Afebrile Blood Pressure: Normal Pulse: Regular Respiratory Rate: Normal Appearance: Positive for: Well-Appearing Pain Distress: None Mental Status: Positive for: Alert and Oriented X 3 - Systems Exam Neck: Present: Normal Range of Motion Respiratory/Chest: Present: Clear to Auscultation, Good Air Exchange. No: Respiratory Distress, Accessory Muscle Use Cardiovascular: Present: Regular Rate and Rhythm, Normal S1, S2. No: Murmurs Abdomen: Present: Normal Bowel Sounds. No: Tenderness, Distention, Peritoneal Signs Back: Present: Normal Inspection Upper Extremity: Present: Normal Inspection. No: Cyanosis, Edema Lower Extremity: Present: Tenderness (diffused tenderness to touch), Erythema ( both feet (mild)) Neurological: Present: GCS=15, CN II-XII Intact, Speech Normal Skin: Present: Dry (dry skin is noted to both feet) Psychiatric: Present: Alert, Oriented x 3, Normal Insight, Normal Concentration Medical Decision Making ED Course and Treatment: 03/24/17 19:24 Impression: 76 year old female with bilateral foot pain and itchiness. Physical exam shows mild erythema bilaterally, diffused tenderness to touch, and dry skin is noted to both feet. Plan: -- Left Foot X-Ray -- Right Foot X-Ray -- Labs -- Toradol -- Bactrim -- Reassess and disposition Prior Visits: Notes and results from previous visits were reviewed. Patient was last seen in the emergency department on 08/16/2016 for chest pain and worsening intermittent abdominal pain. Patient was d/c home. Progress Notes: - Lab Interpretations Lab Results: 03/24/17 19:46 03/24/17 19:46 Lab Results 03/24/17 19:46: Sodium 143, Potassium 4.2, Chloride 105, Carbon Dioxide 27, Anion Gap 15, BUN 16, Creatinine 0.8, Est GFR ( Amer) > 60, Est GFR (Non- Af Amer) > 60, Random Glucose 95, Calcium 9.6, Total Bilirubin 0.5, AST 33, ALT 21, Alkaline Phosphatase 67, Total Protein 8.2, Albumin 3.9, Globulin 4.2, Albumin/Globulin Ratio 0.9 L 03/24/17 19:46: WBC 6.5 D, RBC 3.95, Hgb 10.1 L, Hct 32.4 L, MCV 82.0, MCH 25.6 , MCHC 31.2, RDW 14.1, Plt Count 367, MPV 8.8, Gran % 81.8 H, Lymph % (Auto) 10.9 L, Jefferson % (Auto) 5.8, Eos % (Auto) 1.2 L, Baso % (Auto) 0.3, Gran # 5.33, Lymph # 0.7 L, Jefferson # 0.4, Eos # 0.1, Baso # 0.02 I have reviewed the lab results: Yes - RAD Interpretation Radiology Orders: 03/24/17 19:24 FOOT LEFT 3 VIEWS ROUTINE [RAD] Stat FOOT RIGHT 2ND DIGIT (TOE) [RAD] Stat - Medication Orders Current Medication Orders: Discontinued Medications Ketorolac Tromethamine (Toradol) 30 mg IVP STAT STA Stop: 03/24/17 19:26 Last Admin: 03/24/17 19:46 Dose: 30 mg MAR Pain Assessment Document 03/24/17 19:46 RD (Rec: 03/24/17 19:46 RD [id number]) Pain Reassessment Is this a pain reassessment? No Sleep Is patient sleeping during reassessment? No Presence of Pain Presence of Pain Yes IVP Administration Document 03/24/17 19:46 RD (Rec: 03/24/17 19:46 RD [id number]) Charges for Administration # of IVP Administrations 1 Trimethoprim/Sulfamethoxazole (Bactrim Ds Tab) 1 tab PO STAT STA PRN Reason: Protocol Stop: 03/24/17 21:14 Last Admin: 03/24/17 21:37 Dose: 1 tab - Scribe Statement The provider has reviewed the documentation as recorded by the Nancy Acuna Provider Mihaelaibe Attestation: All medical record entries made by the Scribe were at my direction and personally dictated by me. I have reviewed the chart and agree that the record accurately reflects my personal performance of the history, physical exam, medical decision making, and the department course for this patient. I have also personally directed, reviewed, and agree with the discharge instructions and disposition. Disposition/Present on Arrival - Present on Arrival Any Indicators Present on Arrival: No History of DVT/PE: No History of Uncontrolled Diabetes: No Urinary Catheter: No History of Decub. Ulcer: No History Surgical Site Infection Following: None - Disposition Have Diagnosis and Disposition been Completed?: Yes Diagnosis: Cellulitis Disposition: HOME/ ROUTINE Disposition Time: 20:50 Condition: GOOD Discharge Instructions (ExitCare): Cellulitis (ED) Additional Instructions: Thank you for letting us take care of you today. The emergency medical care you received today was directed at your acute symptoms. If you were prescribed any medication, please fill it and take as directed. It may take several days for your symptoms to resolve. Return to the Emergency Department if your symptoms worsen, do not improve, or if you have any other problems. Please contact your doctor or call one of the physicians/clinics you have been referred to that are listed on the Patient Visit Information form that is included in your discharge packet. Bring any paperwork you were given at discharge with you along with any medications you are taking to your follow up visit. Our treatment cannot replace ongoing medical care by a primary care provider (PCP) outside of the emergency department. Thank you for allowing the [facility] team to be part of your care today. Follow up with your doctor in 1-2 days for re-evaluation and further management. Prescriptions: Ibuprofen [Motrin] 600 mg PO Q6 PRN #20 tab PRN Reason: Pain, Moderate (4-7) Sulfamethoxazole/Trimethoprim [Bactrim DS 800 mg-160 mg] 1 tab PO BID #10 tab Referrals: Pati Hardin MD [Primary Care Provider] - Follow up with primary Forms: [employer]US ([place]ux[place]ish)
--- NOTE | 2017-03-25 08:20 | RAD ---
PROCEDURE: Left Foot Radiographs. HISTORY: r/o fx COMPARISON: [facility] FINDINGS: BONES: No fracture. Plantar calcaneal spur JOINTS: Normal. SOFT TISSUES: Normal. OTHER FINDINGS: None. IMPRESSION: Plantar calcaneal spur. Otherwise unremarkable.
--- NOTE | 2017-03-25 08:29 | RAD ---
PROCEDURE: Right 2nd toe HISTORY: r/o fx COMPARISON: Not available TECHNIQUE: Three views right foot attention 2nd digit FINDINGS: There is no evidence of fracture or dislocation. The joint spaces and articular surfaces of the 2nd digit are intact. There is evidence of prior surgery at the 1st metatarsal phalangeal articulation with the joint spacer or prosthesis present. IMPRESSION: No evidence of fracture.
== END 2017-03-24 21:41 | disposition home or self-care (01) ==
LOC: ED 18:12
DX: L03.116 Cellulitis of left lower limb (principal); L03.115 Cellulitis of right lower limb; I10 Essential (primary) hypertension; Z87.891 Personal history of nicotine dependence
CPT/HCPCS: 73630; 73660; 80053; 85025; 96374; 99284; J1885

== ENCOUNTER 2017-12-03 00:40 | Observation (INO) | payer MEDICARE, OTHER ==
[2017-12-03 00:50] VITALS: BMI 35.9
[2017-12-03] MEDS ORDERED: Morphine 2 mg/ml ISec IVP STA ×2 (01:07→02:41)
--- NOTE | 2017-12-03 01:07 | ED PDOC ---
Arrival/HPI - General Chief Complaint: Back Pain Time Seen by Provider: 12/03/17 00:51 Historian: Patient - History of Present Illness Narrative History of Present Illness (Text): 12/03/17 01:07 Lizett Foss is a 77 year old female, whose past medical history includes hypertension, severe bilateral knee osteoarthritis, degenerative disc disease, questionable seizure, and hyperlipidemia, who presents to the ED complaining of left-sided flank pain. Patient states she was cleaning earlier today at home and may have "pulled" a muscle. Patient now complaining of worsening left-sided flank pain radiating to her back and abdomen. Patient denies any fever, chills, urinary symptoms, vomiting, diarrhea, or any other complaints. PMD: Dr. Cruz Symptom Onset: Gradual Symptom Course: Unchanged Activities at Onset: Light Context: Home Past Medical History - Provider Review Nursing Documentation Reviewed: Yes - Infectious Disease Hx of Infectious Diseases: None - Tetanus Immunization Tetanus Immunization: Unknown - Cardiac Hx Cardiac Disorders: Yes Hx Angina: No Hx Cardiac Arrhythmia: No Hx Circulatory Problems: No Hx Congestive Heart Failure: No Hx Heart Murmur: No Hx Heart Transplant: No Hx Hypertension: Yes Hx Internal Defibrillator: No Hx Mitral Valve Prolapse: No Hx Pacemaker: No Hx Peripheral Edema: No Hx Peripheral Vascular Disease: No - Pulmonary Hx Respiratory Disorders: No Hx Asthma: No Hx Bronchitis: No Hx Chronic Obstructive Pulmonary Disease (COPD): No Hx Emphysema: No Hx Pneumonia: No Hx Respiratory Aspiration: No Hx Respiratory Tract Infection: No Hx Sleep Apnea: No Hx Tuberculosis: No - Neurological Hx Neurological Disorder: Yes Hx Alzheimer's Disease: No HX Cerebrovascular Accident: No Hx Dementia: No Hx Dizziness: No Hx Meningitis: No Hx Migraine: No Hx Parkinson's Disease: No Hx Seizures: Yes Hx Transient Ischemic Attacks (TIA): No - HEENT Hx HEENT Disorder: Yes (wears glasses) Hx Blind: No Hx Cataracts: No Hx Deafness: No Hx Difficulty Chewing: No Hx Epistaxis: No Hx Glaucoma: No Hx Macular Degeneration: No - Renal Hx Renal Disorder: No Hx Dialysis: No Hx Kidney Stones: No Hx Neurogenic Bladder: No Hx Pyelonephritis: No Hx Renal Cancer: No Hx Renal Failure: No - Endocrine/Metabolic Hx Endocrine Disorders: No Hx Adrenal Cancer: No Hx Diabetes Insipidus: No Hx Diabetes Mellitus Type 1: No Hx Diabetes Mellitus Type 2: No Hx Hyperthyroidism: No Hx Hypothyroidism: No Hx Systemic Lupus Erythematosus: No - Hematological/Oncological Hx Blood Disorders: No Hx AIDS: No Hx Anemia: No Hx Cancer: No Hx Chemotherapy: No Hx Cirrhosis: No Hx Hemophilia: No Hx Hepatitis A: No Hx Hepatitis B: No Hx Hepatitis C: No Hx Metastasis: No Hx Shingles: No Hx Sickle Cell Disease: No Hx Unexplained Bleeding: No - Integumentary Hx Dermatological Disorder: No Hx Basal Cell Carcinoma: No Hx Eczema: No Hx Melanoma: No Hx Psoriasis: No Hx Squamous Cell Carcinoma: No - Musculoskeletal/Rheumatological Hx Musculoskeletal Disorders: Yes Hx Arthritis: Yes Hx Back Pain: Yes Hx Degenerative Joint Disease: No Hx Falls: No Hx Fractures: No Hx Gout: Yes Hx Herniated Disk: No Hx Myasthenia Gravis: No Hx Osteoarthritis: No Hx Osteomyelitis: No Hx Osteoporosis: No Hx Rhabdomyolysis: No Hx Spinal Stenosis: No Hx Unsteady Gait: No (uses a cane) - Gastrointestinal Hx Gastrointestinal Disorders: Yes (constipation) Hx Colostomy: No Hx Crohn's Disease: No Hx Diverticulitis: No Hx Gall Bladder Disease: No Hx Gastroesophageal Reflux: No Hx Gastrointestinal Ulcer: No Hx Ileostomy: No Hx Liver Failure: No Hx Pancreatitis: No HX Swallowing Problems: No - Genitourinary/Gynecological Hx Genitourinary Disorders: No Hx Hematuria: No Hx Incontinence: No Hx Prostate Problems: No Hx Sexually Transmitted Diseases: No Hx Urinary Tract Infection: No - Psychiatric Hx Psychophysiologic Disorder: No Hx Anxiety: No Hx Bipolar Disorder: No Hx Depression: No Hx Emotional Abuse: No Hx Hallucinations: No Hx Panic Disorder: No Hx Post Traumatic Stress Disorder: No Hx Psychosis: No Hx Physical Abuse: No Hx Schizophrenia: No Hx Sexual Abuse: No Hx Substance Use: No - Surgical History Hx Amputation: No Hx Appendectomy: No Hx Cardiac Catheterization: No Hx Cholecystectomy: No Hx Coronary Stent: No Hx Gastric Bypass Surgery: No Hx Hysterectomy: No Hx Joint Replacement: No Hx Kidney Transplant: No Hx Liver Transplant: No Hx Mastectomy: No Hx Musculoskeletal Surgery: No Hx Open Heart Surgery: No Hx Orthopedic Surgery: No Hx Splenectomy: No Hx Valve Replacement: No - Anesthesia Hx Anesthesia: Yes Hx Anesthesia Reactions: No Hx Malignant Hyperthermia: No - Suicidal Assessment Feels Threatened In Home Enviroment: No Family/Social History - Physician Review Nursing Documentation Reviewed: Yes Family/Social History: Unknown Family HX Smoking Status: Former Smoker Hx Alcohol Use: No Hx Substance Use: No Hx Substance Use Treatment: No Allergies/Home Meds Allergies/Adverse Reactions: Allergies Penicillins Allergy (Verified 10/17/15 19:58) ANAPHYLAXIS Home Medications: Home Meds Medication Instructions Recorded Confirmed Metoprolol Tartrate [Lopressor] 50 mg PO DAILY 07/06/14 12/03/17 Aspirin [Ecotrin] 81 mg PO DAILY 04/06/15 12/03/17 Review of Systems - Physician Review All systems were reviewed & negative as marked: Yes - Review of Systems Constitutional: Normal. absent: Fevers Eyes: Normal ENT: Normal Respiratory: Normal. absent: SOB, Cough Cardiovascular: Normal. absent: Chest Pain Gastrointestinal: Abdominal Pain Genitourinary Female: Normal. absent: Dysuria, Frequency, Hematuria, Urine O utput Changes Musculoskeletal: Back Pain. absent: Neck Pain Skin: Normal. absent: Rash Neurological: Normal. absent: Headache, Dizziness Endocrine: Normal Hemo/Lymphatic: Normal Psychiatric: Normal Physical Exam Vital Signs Reviewed: Yes Vital Signs Temp Pulse Resp BP Pulse Ox 12/03/17 07:05 64 22 104/62 99 12/03/17 06:00 98.2 F 79 18 118/69 95 12/03/17 05:16 63 23 110/53 L 99 12/03/17 03:14 65 24 108/44 L 100 12/03/17 00:50 97.8 F 80 18 113/62 98 Temperature: Afebrile Blood Pressure: Normal Pulse: Regular Respiratory Rate: Normal Appearance: Positive for: Well-Appearing, Non-Toxic, Comfortable Mental Status: Positive for: Alert and Oriented X 3 - Systems Exam Head: Present: Atraumatic, Normocephalic Pupils: Present: PERRL Extroacular Muscles: Present: EOMI Conjunctiva: Present: Normal Mouth: Present: Moist Mucous Membranes Neck: Present: Normal Range of Motion Respiratory/Chest: Present: Clear to Auscultation, Good Air Exchange. No: Respiratory Distress, Accessory Muscle Use Cardiovascular: Present: Regular Rate and Rhythm, Normal S1, S2. No: Murmurs Abdomen: No: Tenderness, Distention, Peritoneal Signs Back: Present: CVA Tenderness (Left CVA tenderness) Upper Extremity: Present: Normal Inspection. No: Cyanosis, Edema Lower Extremity: Present: Normal Inspection. No: Edema Neurological: Present: GCS=15, CN II-XII Intact, Speech Normal Skin: Present: Warm, Dry, Normal Color. No: Rashes Psychiatric: Present: Alert, Oriented x 3, Normal Insight, Normal Concentration Medical Decision Making ED Course and Treatment: 12/03/17 01:07 Impression: 77 year old female brought in for left flank pain. Plan: -- CT Abdomen and Pelvis -- EKG -- Labs, amylase, lipase -- Urinalysis -- Zofran -- Morphine -- Reassess and disposition Prior Visits: Notes and results from previous visits were reviewed. Progress Notes: Reviewed EKG, NSR at [address]pm[address] LAD. Non-specific ST/T wave changes. 12/03/17 02:50 CT Abdomen and Pelvis reviewed, shows: 1. There is diffuse diverticulosis noted involving all colonic segments. No evidence of acute diverticulitis. 2. 2cm rigut hepatic lobe cyst is seen. 3. Thoracolumbar levoscoliosis 4. No acute pathology. 12/03/17 04:[address] Cruz, who is aware and agrees with plan. Accepts pt in to her service. - Lab Interpretations Lab Results: 12/03/17 02:05 12/03/17 02:05 Lab Results 12/03/17 02:15: Urine Color Yellow, Urine Appearance Clear, Urine pH 6.5, Ur Specific Clarence 1.010, Urine Protein Negative, Urine Glucose (UA) Negative, Urine Ketones Negative, Urine Blood Trace-intact H, Urine Nitrate Negative, Urine Bilirubin Negative, Urine Urobilinogen 0.2, Ur Leukocyte Esterase Negative, Urine RBC 0 - 2, Urine WBC 0 - 2, Ur Epithelial Cells 0 - 2, Urine Bacteria Occ 12/03/17 02:05: Sodium 140, Potassium 2.9 L* D, Chloride 97 L, Carbon Dioxide 35 H, Anion Gap 11, BUN 41 H, Creatinine 0.9, Est GFR ( Amer) > 60, Est GFR (Non-Af Amer) > 60, Random Glucose 107, Calcium 9.4, Total Bilirubin 0.3, AST 42 H D, ALT 22, Alkaline Phosphatase 126 D, Lactate Dehydrogenase 577, Total Creatine Kinase 305 H, CK-MB (CK-2) 1.4, CK-MB (CK-2) % Cancelled, Troponin I < 0.01, Total Protein 8.0, Albumin 4.1, Globulin 3.9, Albumin/Globulin Ratio 1.1, Amylase 215 H, Lipase 87 12/03/17 02:05: PT 12.6 H, INR 1.10, APTT 31.0 12/03/17 02:05: WBC 6.9, RBC 4.07, Hgb 10.8 L, Hct 34.6 L, MCV 85.0 D, MCH 26.5, MCHC 31.2, RDW 13.7, Plt Count 212, MPV 9.9, Gran % 72.6 H, Lymph % (Auto) 19.8 L, Robeson % (Auto) 5.9, Eos % (Auto) 1.6, Baso % (Auto) 0.1, Gran # 5.03, Lymph # (Auto) 1.4, Robeson # (Auto) 0.4, Eos # (Auto) 0.1, Baso # (Auto) 0.01 I have reviewed the lab results: Yes - RAD Interpretation Radiology Orders: 12/03/17 01:07 ABD & PELVIS W/O PO OR IV CONT [CT] Stat Precision Assembler Bench: Radiologist - EKG Interpretation Interpreted by ED Physician: Yes Type: 12 lead EKG - Medication Orders Current Medication Orders: Discontinued Medications Aspirin (Ecotrin) 81 mg PO DAILY [facility] Last Admin: 12/04/17 10:19 Dose: 81 mg Cyclobenzaprine HCl (Flexeril) 5 mg PO TID [facility] Last Admin: 12/04/17 10:18 Dose: 5 mg Potassium Chloride (Potassium Chloride 20 Meq/100 Ml) 20 meq in 100 mls @ 50 mls/hr IVPB Q2H LUISA Stop: 12/03/17 06:59 Last Admin: 12/03/17 05:15 Dose: 50 mls/hr eMAR Start Stop Document 12/03/17 05:15 CNR (Rec: 12/03/17 05:15 CNR [id number]) Intravenous Solution Start Date 12/03/17 Start Time 05:15 Magnesium Citrate (Citrate Of Mag) 150 ml PO ONCE ONE Stop: 12/04/17 10:36 Last Admin: 12/04/17 11:55 Dose: Not Given Non-Admin Reason: Patient Refused Methylprednisolone (Solu-Medrol) 60 mg IVP ONCE ONE Stop: 12/03/17 14:01 Last Admin: 12/03/17 14:22 Dose: 60 mg IVP Administration Document 12/03/17 14:22 DSZ (Rec: 12/03/17 14:22 [place] [id number]) Charges for Administration # of IVP Administrations 1 Methylprednisolone (Solu-Medrol) 40 mg IV Q12 [facility] Last Admin: 12/04/17 10:18 Dose: 40 mg eMAR Start Stop Document 12/04/17 10:18 DSZ (Rec: 12/04/17 10:18 Z [place] [id number]) Intravenous Solution Start Date 12/04/17 Start Time 10:18 Metoprolol Tartrate (Lopressor) 50 mg PO DAILY [facility] Last Admin: 12/04/17 10:19 Dose: 50 mg MAR Pulse and Blood Pressure Document 12/04/17 10:19 DSZ (Rec: 12/04/17 10:19 Z [place] [id number]) Pulse Pulse Rate (60-90) 64 Blood Pressure Blood Pressure (100/60-150/90) 115/60 Morphine Sulfate (Morphine) 2 mg IVP STAT STA Stop: 12/03/17 01:08 Last Admin: 12/03/17 02:08 Dose: 2 mg MAR Pain Assessment Document 12/03/17 02:08 CNR (Rec: 12/03/17 02:09 CNR [id number]) Pain Reassessment Is this a pain reassessment? No IVP Administration Document 12/03/17 02:08 CNR (Rec: 12/03/17 02:09 CNR [id number]) Charges for Administration # of IVP Administrations 1 Morphine Sulfate (Morphine) 2 mg IVP STAT STA Stop: 12/03/17 02:42 Last Admin: 12/03/17 02:46 Dose: 2 mg MAR Pain Assessment Document 12/03/17 02:46 JMR (Rec: 12/03/17 02:47 JMR [id number]) Pain Reassessment Is this a pain reassessment? No Sleep Is patient sleeping during reassessment? No Presence of Pain Presence of Pain Yes Pain Scale Used Protocol: PSCALES Pain Scale Used Numeric Location Left, Right or Bilateral Left Upper or Lower Lower Pain Location Body Site Abdomen Description Description Sharp Intensity of Pain at present 8 Acceptable Level of Pain 0 Pain Behavior Moaning Irritability Restlessness Aggravating Factors ADL's IVP Administration Document 12/03/17 02:46 JMR (Rec: 12/03/17 02:47 JMR [id number]) Charges for Administration # of IVP Administrations 1 Morphine Sulfate (Morphine) 2 mg IVP ONCE ONE Stop: 12/03/17 14:10 Last Admin: 12/03/17 14:22 Dose: 2 mg MAR Pain Assessment Document 12/03/17 14:22 DSZ (Rec: 12/03/17 14:23 DSZ [place] [id number]) Pain Reassessment Is this a pain reassessment? No Sleep Is patient sleeping during reassessment? No Presence of Pain Presence of Pain Yes Pain Scale Used Protocol: [facility] Pain Scale Used Numeric Location Left, Right or Bilateral Left Upper or Lower Lower Pain Location Body Site Abdomen Description Description Intermittent Intensity of Pain at present 9 Acceptable Level of Pain 3 Pain Behavior Facial Grimacing Alleviating Factors/Management Medication Techniques Alleviating Factors Medication IVP Administration Document 12/03/17 14:22 DSZ (Rec: 12/03/17 14:23 DSZ [place] [id number]) Charges for Administration # of IVP Administrations 1 Re-Assess: MAR Pain Assessment Document 12/03/17 15:22 DSZ (Rec: 12/03/17 18:28 DSZ [place] [id number]) Pain Reassessment Is this a pain reassessment? Yes Sleep Is patient sleeping during reassessment? No Pain Scale Used Protocol: [facility] Pain Scale Used Numeric Location Left, Right or Bilateral Left Pain Location Body Site Abdomen Description Description Intermittent Intensity of Pain at present 6 Acceptable Level of Pain 2 Pain Behavior Withdrawal from Touch Restlessness Alleviating Factors/Management Medication Techniques Alleviating Factors Medication Naproxen (Anaprox Ds) 550 mg PO BID LUISA Last Admin: 12/04/17 10:19 Dose: 550 mg Ondansetron HCl (Zofran Inj) 4 mg IVP STAT STA Stop: 12/03/17 01:08 Last Admin: 12/03/17 02:09 Dose: 4 mg IVP Administration Document 12/03/17 02:09 CNR (Rec: 12/03/17 02:09 CNR [id number]) Charges for Administration # of IVP Administrations 1 Ondansetron HCl (Zofran Inj) 4 mg IVP ONCE ONE Stop: 12/03/17 14:32 Last Admin: 12/03/17 17:43 Dose: 4 mg IVP Administration Document 12/03/17 17:43 [facility] (Rec: 12/03/17 17:43 [id number] Charges for Administration # of IVP Administrations 1 Oxycodone/Acetaminophen (Percocet 5/325 Mg Tab) 1 tab PO Q6H PRN PRN Reason: Pain, moderate (4-7) Stop: 12/06/17 17:56 Last Admin: 12/03/17 18:27 Dose: 1 tab [facility] Pain Assessment Document 12/03/17 18:27 DSZ (Rec: 12/03/17 18:28 [facility] [id number]) Pain Reassessment Is this a pain reassessment? No Sleep Is patient sleeping during reassessment? No Presence of Pain Presence of Pain Yes Pain Scale Used Protocol: PSCALES Pain Scale Used Numeric Location Left, Right or Bilateral Left Upper or Lower Lower Pain Location Body Site Abdomen Description Description Intermittent Intensity of Pain at present 9 Acceptable Level of Pain 2 Pain Behavior Withdrawal from Touch Restlessness Aggravating Factors Contant Alleviating Factors/Management Medication Techniques Alleviating Factors Medication Re-Assess: [facility] Pain Assessment Document 12/03/17 19:27 Z (Rec: 12/04/17 10:18 Z [id number]) Pain Reassessment Is this a pain reassessment? Yes Sleep Is patient sleeping during reassessment? No Presence of Pain Presence of Pain No Location Left, Right or Bilateral Left Pain Location Body Site Abdomen Description Description Intermittent Intensity of Pain at present 2 Acceptable Level of Pain 4 Pain Behavior Withdrawal from Touch Alleviating Factors/Management Medication Techniques Alleviating Factors Medication Pantoprazole Sodium (Protonix Ec Tab) 40 mg PO 0600 [facility] Last Admin: 12/04/17 05:07 Dose: 40 mg Phenytoin Sodium (Dilantin) 100 mg PO QAM [facility] Last Admin: 12/04/17 10:19 Dose: 100 mg Potassium Chloride (K-Dur 20 Meq Er Tab) 40 meq PO ONCE ONE Stop: 12/03/17 08:42 Last Admin: 12/03/17 09:49 Dose: 40 meq Potassium Chloride (K-Dur 20 Meq Er Tab) 40 meq PO ONCE ONE Stop: 12/03/17 11:26 Last Admin: 12/03/17 14:19 Dose: 40 meq Tramadol HCl (Ultram) 50 mg PO TID PRN PRN Reason: Pain, moderate (4-7) Last Admin: 12/03/17 09:48 Dose: 50 mg [facility] Pain Assessment Document 12/03/17 09:48 DSZ (Rec: 12/03/17 09:49 DSZ [id number]) Pain Reassessment Is this a pain reassessment? No Sleep Is patient sleeping during reassessment? No Presence of Pain Presence of Pain Yes Pain Scale Used Protocol: PSCALES Pain Scale Used Numeric Location Left, Right or Bilateral Left Pain Location Body Site Back Description Description Intermittent Intensity of Pain at present 9 Acceptable Level of Pain 3 Pain Behavior Withdrawal from Touch Aggravating Factors Contant Alleviating Factors/Management Medication Techniques Alleviating Factors Medication Re-Assess: [facility] Pain Assessment Document 12/03/17 10:48 DSZ (Rec: 12/03/17 11:25 DSZ [id number]) Pain Reassessment Is this a pain reassessment? No Sleep Is patient sleeping during reassessment? No Presence of Pain Presence of Pain Yes Pain Scale Used Protocol: PSCALES Pain Scale Used Numeric Location Left, Right or Bilateral Left Upper or Lower Upper Pain Location Body Site Abdomen Description Description Intermittent Intensity of Pain at present 5 Acceptable Level of Pain 2 Pain Behavior Withdrawal from Touch Aggravating Factors Contant Alleviating Factors/Management Medication Techniques Alleviating Factors Medication - Scribe Statement The provider has reviewed the documentation as recorded by the Scribsahil Agosto All medical record entries made by the Scribe were at my direction and personally dictated by me. I have reviewed the chart and agree that the record accurately reflects my personal performance of the history, physical exam, medical decision making, and the department course for this patient. I have also personally directed, reviewed, and agree with the discharge instructions and disposition. Disposition/Present on Arrival - Present on Arrival Any Indicators Present on Arrival: No History of DVT/PE: No History of Uncontrolled Diabetes: No Urinary Catheter: No History of Decub. Ulcer: No History Surgical Site Infection Following: None - Disposition Have Diagnosis and Disposition been Completed?: Yes Diagnosis: Arthralgia, Back pain Disposition: HOSPITALIZED Disposition Time: 05:00 Condition: FAIR
[2017-12-03 02:41] LABS: TROPONIN I < 0.01 ng/mL
[2017-12-03 02:46] LABS: PH,URINE 6.5 (4.7-8.0); URINE BILIRUBIN NEGATIVE (NEGATIVE); URINE BLOOD TRACE-INTACT (NEGATIVE); URINE GLUCOSE (UA) NEGATIVE (NEGATIVE); URINE LEUKOCYTE ESTERASE NEGATIVE Leu/uL (NEGATIVE); URINE PROTEIN NEGATIVE mg/dL (<30 mg/dL); URINE UROBILINOGEN 0.2 E.U./dL (<1 E.U./dL)
[2017-12-03 02:49] LABS: BASO # 0.01 K/mm3 (0.0-2.0); BASO % 0.1 % (0.0-3.0); EOS # 0.1 (0.0-0.7); EOS % 1.6 % (1.5-5.0); GRAN # 5.03 (1.4-6.5); GRAN % 72.6 % (50.0-68.0); HEMOGLOBIN 10.8 g/dL (12.0-16.0); INR 1.1; LYMPH # 1.4 (1.2-3.4); LYMPH % 19.8 % (22.0-35.0); MEAN CORPUSCULAR HEMOGLOBIN 26.5 pg (25.0-35.0); MEAN CORPUSCULAR HGB CONC 31.2 g/dl (31.0-37.0); MEAN PLATELET VOLUME 9.9 fl (7.0-11.0); MONO # 0.4 (0.1-0.6); MONO % 5.9 % (1.0-6.0); PROTHROMBIN TIME 12.6 SECONDS (9.4-12.5); RBC 4.07 10^6/uL (3.5-6.1); RED CELL DISTRIBUTION WIDTH 13.7 % (11.5-14.5); WHITE BLOOD COUNT 6.9 10^3/ul (4.5-11.0)
[2017-12-03 02:50] LABS: URINE APPEARANCE CLEAR (CLEAR); URINE COLOR YELLOW (YELLOW)
[2017-12-03 02:52] LABS: ALB/GLOB RATIO 1.1 (1.1-1.8); ALBUMIN 4.1 g/dL (3.0-4.8); ALT/SGPT 22 U/L (7-56); AMYLASE 215 U/L (35-125); AST/SGOT 42 U/L (14-36); BLOOD UREA NITROGEN 41 mg/dL (7-21); CALCIUM 9.4 mg/dL (8.4-10.5); GFR NON-AFRICAN AMERICAN > 60; LIPASE 87 U/L (23-300)
[2017-12-03 02:57] LABS: URINE BACTERIA OCC (NEG); URINE EPITHELIAL CELLS 0 - 2 /hpf (0-5); URINE RBC 0 - 2 /hpf (0-2); URINE WBC 0 - 2 /hpf (0-6)
[2017-12-03 03:02] LABS: CK-MB 1.4 ng/mL (0.0-3.6)
[2017-12-03] MEDS ORDERED: Potassium Chloride 20 mEq ER Tab PO ONE ×2 (08:41→11:25)
--- NOTE | 2017-12-03 09:08 | CARD ---
APPROVED REPORT Date of service: 12/03/2017 EKG Measurement Heart [id number] <Conclusion> Normal sinus rhythm with 1st degree AVB Left axis deviation PRWP NSSTW changes
--- NOTE | 2017-12-03 10:02 | CT ---
Date of service: 12/03/2017 PROCEDURE: CT Abdomen and Pelvis without intravenous contrast HISTORY: left flank pain COMPARISON: 08/16/2016. CT abdomen pelvis. 08/19/2016 abdominal ultrasound TECHNIQUE: Unenhanced. Neither IV nor oral contrast adminstered Radiation dose: Total exam DLP = 1017.25 mGy-cm. This CT exam was performed using one or more of the following dose reduction techniques: Automated exposure control, adjustment of the mA and/or kV according to patient size, and/or use of iterative reconstruction technique. FINDINGS: LOWER THORAX: Unremarkable. LIVER: Hepatic steatosis. Stable right hepatic cyst. No gross lesion or ductal dilatation. GALLBLADDER AND BILE DUCTS: Unremarkable. PANCREAS: Unremarkable. No gross lesion or ductal dilatation. SPLEEN: Unremarkable. ADRENALS: Unremarkable. No mass. KIDNEYS AND URETERS: Unremarkable. No hydronephrosis. No solid mass. VASCULATURE: Unremarkable. No aortic aneurysm. BOWEL: Diverticulosis without an acute inflammatory component or other associated pathologic process. APPENDIX: Unremarkable. Normal appendix. PERITONEUM: Unremarkable. No free fluid. No free air. LYMPH NODES: Unremarkable. No enlarged lymph nodes. BLADDER: Unremarkable. REPRODUCTIVE: Unremarkable. BONES: No acute fracture. OTHER FINDINGS: None. IMPRESSION: No acute findings related to/accounting for the clinical presentation. Additional benign and/or incidental findings described above. No significant interval changes identified. Concordant results (preliminary interpretation) provided by [employer]. Procedure Completed: 01:51. Preliminary ([facility]Rad) Report: Dictated and Authenticated: 02:43 Final Interpretation: 10:01.
[2017-12-03 11:10] LABS: BLOOD UREA NITROGEN 28 mg/dL (7-21); GFR NON-AFRICAN AMERICAN > 60
[2017-12-03] MEDS ORDERED: Barium Sulfate Susp 2.1% w/v, 2.0% w/w 450 mL Bottle PO ONE (12:06)
[2017-12-03] MEDS ORDERED: Morphine 2 mg/ml ISec IVP ONE (14:09)
[2017-12-03] MEDS: Pantoprazole 40 mg EC Tab PO SCH (14:24)
[2017-12-03 14:55] VITALS: RESP 20; TEMP 98.8; O2SAT 96
--- NOTE | 2017-12-03 16:10 | CT ---
Date of service: 12/03/2017 PROCEDURE: CT Abdomen and Pelvis with contrast HISTORY: Abdominal pain, intractable back pain. COMPARISON: December 03, 2017. CT abdomen and pelvis. Time of the most recent examination: 01:51 TECHNIQUE: Oral contrast only. Radiation dose: Total exam DLP = 925.37 mGy-cm. This CT exam was performed using one or more of the following dose reduction techniques: Automated exposure control, adjustment of the mA and/or kV according to patient size, and/or use of iterative reconstruction technique. FINDINGS: LOWER THORAX: Platelike atelectasis/scarring again identified. LIVER: No significant interval change compared to the prior examination(s).No gross lesion or ductal dilatation. GALLBLADDER AND BILE DUCTS: Unremarkable. PANCREAS: Unremarkable. No gross lesion or ductal dilatation. SPLEEN: Unremarkable. ADRENALS: Unremarkable. No mass. KIDNEYS AND URETERS: Unremarkable. No hydronephrosis. No solid mass. VASCULATURE: Unremarkable. No aortic aneurysm. BOWEL: Diverticulosis without an acute inflammatory component or other associated pathologic process. APPENDIX: Normal appendix. PERITONEUM: Unremarkable. No free fluid. No free air. LYMPH NODES: Unremarkable. No enlarged lymph nodes. BLADDER: Unremarkable. REPRODUCTIVE: Unremarkable. BONES: No acute fracture. OTHER FINDINGS: None. IMPRESSION: No acute findings related to/accounting for the clinical presentation. Additional benign and/or incidental findings described above. No significant interval change compared to the prior examination(s).
--- NOTE | 2017-12-03 16:43 | RAD ---
Date of service: 12/03/2017 PROCEDURE: Radiographs of the Lumbar Spine. HISTORY: back pain COMPARISON: No prior. FINDINGS: BONES: Diffuse osteopenia. Normal alignment and vertebral body heights. DISC SPACES: Unremarkable. OTHER FINDINGS: None. IMPRESSION: No acute findings related to/accounting for the clinical presentation.
[2017-12-03] MEDS ORDERED: Oxycodone/Acetaminophen 5/325 mg Tab PO PRN (17:55)
[2017-12-03] MEDS: Naproxen 550 mg Tab PO SCH (18:27)
[2017-12-03 19:58] LABS: PH,URINE 6.5 (4.7-8.0); URINE BILIRUBIN NEGATIVE (NEGATIVE); URINE BLOOD TRACE-INTACT (NEGATIVE); URINE GLUCOSE (UA) NEGATIVE (NEGATIVE); URINE LEUKOCYTE ESTERASE NEGATIVE Leu/uL (NEGATIVE); URINE PROTEIN NEGATIVE mg/dL (<30 mg/dL); URINE UROBILINOGEN 0.2 E.U./dL (<1 E.U./dL)
[2017-12-03 20:04] LABS: URINE APPEARANCE CLEAR (CLEAR); URINE COLOR YELLOW (YELLOW)
[2017-12-03 20:16] LABS: URINE BACTERIA FEW (NEG); URINE RBC 0 - 2 /hpf (0-2)
[2017-12-03] MEDS: MethylPREDNISolone 40 mg Vial IV SCH (21:24)
--- NOTE | 2017-12-04 03:45 | HP ---
HISTORY OF PRESENT ILLNESS: The patient is 77 years old states she tried to lease picker something and after that when she laid in bed, she felt sharp pain in her left flank area radiating to her left lower abdomen. She also states she did a lot of cleaning in the [employer] building and at that point, she was feeling some pulling sensation in her left flank and left lower abdominal area. When she laid down to sleep, her pain got worse, she could not even change her side in the bed. Denies any fever or chills. Denied any nausea or vomiting. No history of constipation. No rectal bleeding. PAST MEDICAL HISTORY: Significant for; 1. Hypertension. 2. Bilateral knee osteoarthritis. 3. Degenerative disc disease. 4. History of seizure disorder. 5. Hyperlipidemia. ALLERGIES: SHE IS ALLERGIC TO PENICILLIN. MEDICATIONS AT HOME: She is on Dilantin 100 mg three times a day, aspirin 81 daily, Flexeril 5 mg three times a day, she is on metoprolol 50 mg daily, and valsartan 160 daily. SOCIAL HISTORY: She lives by herself. Denies smoking, drinking or alcohol use. REVIEW OF SYSTEMS: Significant for left flank pain. PHYSICAL EXAMINATION: GENERAL: She is awake and alert, crying in pain. VITAL SIGNS: She is afebrile, pulse 61, respirations 20, blood pressure . LUNGS: Bilateral fair airflow. No rhonchi or crackle. HEART: S1, S2 audible. ABDOMEN: Soft. Left lower quadrant palpable discomfort. NEUROLOGICAL: She is awake and alert, able to communicate. LABORATORY EXAM: WBC 6.9, hemoglobin 10.8, hematocrit 34.6, platelet of 212. PT 12.6. INR 1.1. Chemistry: Sodium 139, potassium 3.4, chloride 100, CO2 of 33, BUN 28, creatinine 0.7, blood sugar of 118. Urinalysis is unremarkable. She had CT scan of the abdomen and pelvis done with p.o. contrast, there is no acute findings related to clinical presentation. ASSESSMENT: 1. Intractable back pain radiating to her left lower quadrant. 2. Hypokalemia. 3. Hypertension. 4. History of seizure disorder. PLAN: We will keep the patient on Naprosyn. Start her on Flexeril. Give her Percocet as needed. Started her on small dose of steroid. We will reevaluate the patient in a.m. Epifanio Cruz MD [facility] # [id number]
[2017-12-04] MEDS: Pantoprazole 40 mg EC Tab PO SCH (05:07)
[2017-12-04 07:38] LABS: BLOOD UREA NITROGEN 24 mg/dL (7-21); CALCIUM 9.4 mg/dL (8.4-10.5); GFR NON-AFRICAN AMERICAN > 60
[2017-12-04] MEDS: MethylPREDNISolone 40 mg Vial IV SCH (10:18)
[2017-12-04] MEDS: Naproxen 550 mg Tab PO SCH (10:19)
[2017-12-04 10:22] VITALS: BP 115/60; PULSE 64
[2017-12-04] MEDS ORDERED: Magnesium Citrate Oral SOL (300 ml) PO ONE (10:35)
--- NOTE | 2017-12-05 04:02 | DS ---
HISTORY OF PRESENT ILLNESS: Patient is 77 years old. Seen and examined. Doing a lot better. Sitting on the chair. Eating and tolerating. No nausea, vomiting or diarrhea. Pain is still there, but much better. PHYSICAL EXAMINATION: VITAL SIGNS: Patient is afebrile. Pulse 64, respirations 20, blood pressure 115/60. LUNGS: Bilateral good airflow. No rhonchi or crackles. HEART: S1, S2 audible. ABDOMEN: Soft, nontender. No rebound, no guarding. NEUROLOGIC: Patient is awake, alert, oriented, communicative. LABORATORY DATA: Sodium 138, potassium 4.3, chloride 100, CO2 30, BUN 24, creatinine 0.7, blood sugar of 113. CT scan of the abdomen and pelvis is done. There is no evidence of diverticulitis. ASSESSMENT: 1. Lumbosacral radiculopathy. 2. Intractable back pain, seems to be improving. 3. History of hypertension. 4. Seizure disorder. PLAN: The patient is being discharged home on Celebrex 200 daily, Zanaflex 2 mg three times a day, prednisone 20 mg twice a day for 5 days, and Percocet as needed. She will follow up in the office. Epifanio Cruz MD
== END 2017-12-04 14:30 | disposition home or self-care (01) ==
LOC: ED 00:40 → ERH 05:16 → 5RNO 07:13
PROVIDERS: ADMIT Internal Medicine; ATTEND Internal Medicine
DX: M54.17 Radiculopathy, lumbosacral region (principal); M54.9 Dorsalgia, unspecified; E87.6 Hypokalemia; I10 Essential (primary) hypertension; G40.909 Epilepsy, unspecified, not intractable, without status epilepticus; M17.0 Bilateral primary osteoarthritis of knee; Z79.82 Long term (current) use of aspirin
CPT/HCPCS: 36415; 72110; 74176; 80048; 80053; 81001; 82150; 82550; 82553; 83615; 83690; 83735; 84484; 85025; 85610; 85730; 87086; 93005; 96374; 96375; 96376; 99284; G0378; J2270; J2405; J2920; J2930; J3480

== ENCOUNTER 2017-12-19 09:59 | Observation (INO) | payer MEDICARE ==
[2017-12-19 10:28] VITALS: BMI 35.2
--- NOTE | 2017-12-19 11:02 | ED PDOC ---
Arrival/HPI - General Historian: Patient - History of Present Illness Narrative History of Present Illness (Text): 12/19/17 10:58 77 year old female presents today with a 2 day history of left-sided chest pain. Patient states the pain is located in the left anterior chest occasionally radiates to the left shoulder/clavicle. Patient states she initially thought it was gas but this pain does not seem to be going away. Patient denies any change in appetite. She denies nausea or vomiting. She denies back pain. Denies headaches dizziness or weakness. No fevers or chills. Patient denies cough. Patient denies any recent trauma or injury. Patient states 2 days ago she was just sitting there and suddenly developed the pain for which she describes as an achy stinging sensation. Time/Duration: Other (2 days) <Maryan Eldridge - Last Filed: 12/19/17 17:38> <Son Evans - Last Filed: 12/22/17 18:52> - General Chief Complaint: Chest Pain Time Seen by Provider: 12/19/17 10:25 Past Medical History - Provider Review Nursing Documentation Reviewed: Yes - Travel History Have you recently traveled outside [place] w/in the past 3 mons?: No - Infectious Disease Hx of Infectious Diseases: None - Tetanus Immunization Tetanus Immunization: Unknown - Cardiac Hx Cardiac Disorders: Yes Hx Angina: No Hx Cardiac Arrhythmia: No Hx Circulatory Problems: No Hx Congestive Heart Failure: No Hx Heart Murmur: No Hx Heart Transplant: No Hx Hypertension: Yes Hx Internal Defibrillator: No Hx Mitral Valve Prolapse: No Hx Pacemaker: No Hx Peripheral Edema: No Hx Peripheral Vascular Disease: No - Pulmonary Hx Respiratory Disorders: No Hx Asthma: No Hx Bronchitis: No Hx Chronic Obstructive Pulmonary Disease (COPD): No Hx Emphysema: No Hx Pneumonia: No Hx Respiratory Aspiration: No Hx Respiratory Tract Infection: No Hx Sleep Apnea: No Hx Tuberculosis: No - Neurological Hx Neurological Disorder: Yes Hx Alzheimer's Disease: No HX Cerebrovascular Accident: No Hx Dementia: No Hx Dizziness: No Hx Meningitis: No Hx Migraine: No Hx Parkinson's Disease: No Hx Seizures: Yes Hx Transient Ischemic Attacks (TIA): No - HEENT Hx HEENT Disorder: Yes (wears glasses) Hx Blind: No Hx Cataracts: No Hx Deafness: No Hx Difficulty Chewing: No Hx Epistaxis: No Hx Glaucoma: No Hx Macular Degeneration: No - Renal Hx Renal Disorder: No Hx Dialysis: No Hx Kidney Stones: No Hx Neurogenic Bladder: No Hx Pyelonephritis: No Hx Renal Cancer: No Hx Renal Failure: No - Endocrine/Metabolic Hx Endocrine Disorders: No Hx Adrenal Cancer: No Hx Diabetes Insipidus: No Hx Diabetes Mellitus Type 1: No Hx Diabetes Mellitus Type 2: No Hx Hyperthyroidism: No Hx Hypothyroidism: No Hx Systemic Lupus Erythematosus: No - Hematological/Oncological Hx Blood Disorders: No Hx AIDS: No Hx Anemia: No Hx Cancer: No Hx Chemotherapy: No Hx Cirrhosis: No Hx Hemophilia: No Hx Hepatitis A: No Hx Hepatitis B: No Hx Hepatitis C: No Hx Metastasis: No Hx Shingles: No Hx Sickle Cell Disease: No Hx Unexplained Bleeding: No - Integumentary Hx Dermatological Disorder: No Hx Basal Cell Carcinoma: No Hx Eczema: No Hx Melanoma: No Hx Psoriasis: No Hx Squamous Cell Carcinoma: No - Musculoskeletal/Rheumatological Hx Musculoskeletal Disorders: Yes Hx Arthritis: Yes Hx Back Pain: Yes Hx Degenerative Joint Disease: No Hx Falls: No Hx Fractures: No Hx Gout: Yes Hx Herniated Disk: No Hx Myasthenia Gravis: No Hx Osteoarthritis: No Hx Osteomyelitis: No Hx Osteoporosis: No Hx Rhabdomyolysis: No Hx Spinal Stenosis: No Hx Unsteady Gait: No (uses a cane) - Gastrointestinal Hx Gastrointestinal Disorders: Yes (constipation) Hx Colostomy: No Hx Crohn's Disease: No Hx Diverticulitis: No Hx Gall Bladder Disease: No Hx Gastroesophageal Reflux: No Hx Gastrointestinal Ulcer: No Hx Ileostomy: No Hx Liver Failure: No Hx Pancreatitis: No HX Swallowing Problems: No - Genitourinary/Gynecological Hx Genitourinary Disorders: No Hx Hematuria: No Hx Incontinence: No Hx Prostate Problems: No Hx Sexually Transmitted Diseases: No Hx Urinary Tract Infection: No - Psychiatric Hx Psychophysiologic Disorder: No Hx Anxiety: No Hx Bipolar Disorder: No Hx Depression: No Hx Emotional Abuse: No Hx Hallucinations: No Hx Panic Disorder: No Hx Post Traumatic Stress Disorder: No Hx Psychosis: No Hx Physical Abuse: No Hx Schizophrenia: No Hx Sexual Abuse: No Hx Substance Use: No - Surgical History Hx Amputation: No Hx Appendectomy: No Hx Cardiac Catheterization: No Hx Cholecystectomy: No Hx Coronary Stent: No Hx Gastric Bypass Surgery: No Hx Hysterectomy: No Hx Joint Replacement: No Hx Kidney Transplant: No Hx Liver Transplant: No Hx Mastectomy: No Hx Musculoskeletal Surgery: No Hx Open Heart Surgery: No Hx Orthopedic Surgery: No Hx Splenectomy: No Hx Valve Replacement: No - Anesthesia Hx Anesthesia: Yes Hx Anesthesia Reactions: No Hx Malignant Hyperthermia: No - Suicidal Assessment Feels Threatened In Home Enviroment: No <Maryan Eldridge - Last Filed: 12/19/17 17:38> Family/Social History - Physician Review Nursing Documentation Reviewed: Yes Family/Social History: Unknown Family HX Smoking Status: Former Smoker Hx Alcohol Use: No Hx Substance Use: No Hx Substance Use Treatment: No <Maryan Eldridge - Last Filed: 12/19/17 17:38> Allergies/Home Meds <Maryan Eldridge - Last Filed: 12/19/17 17:38> <Son Evans - Last Filed: 12/22/17 18:52> Allergies/Adverse Reactions: Allergies Penicillins Allergy (Verified 12/19/17 18:31) ANAPHYLAXIS Home Medications: Home Meds Medication Instructions Recorded Confirmed RX: Metoprolol Tartrate [Lopressor] 50 mg PO DAILY 07/06/14 12/19/17 RX: Aspirin [Ecotrin] 81 mg PO DAILY 04/06/15 12/19/17 Review of Systems - Review of Systems Constitutional: absent: Fatigue, Fevers Respiratory: absent: SOB, Cough Cardiovascular: Chest Pain. absent: Palpitations Gastrointestinal: absent: Abdominal Pain, Constipation, Diarrhea, Nausea, Vomiting Genitourinary Female: absent: Dysuria, Frequency, Hematuria Musculoskeletal: absent: Arthralgias, Back Pain, Neck Pain Skin: absent: Rash, Pruritis Neurological: absent: Headache, Dizziness Psychiatric: absent: Anxiety, Depression, Suicidal Ideation <Maryan Eldridge - Last Filed: 12/19/17 17:38> Physical Exam Vital Signs Reviewed: Yes Vital Signs Temp Pulse Resp BP Pulse Ox 12/19/17 10:17 98.6 F 76 20 100/67 96 Temperature: Afebrile Blood Pressure: Normal Pulse: Regular Respiratory Rate: Normal Appearance: Positive for: Well-Appearing, Non-Toxic, Comfortable Pain Distress: None Mental Status: Positive for: Alert and Oriented X 3 - Systems Exam Head: Present: Atraumatic Mouth: Present: Moist Mucous Membranes Neck: Present: Normal Range of Motion Respiratory/Chest: Present: Clear to Auscultation, Good Air Exchange. No: Respiratory Distress, Accessory Muscle Use Cardiovascular: Present: Regular Rate and Rhythm, Normal S1, S2. No: Murmurs Abdomen: Present: Normal Bowel Sounds. No: Tenderness, Distention, Peritoneal Signs, Rebound, Guarding Back: Present: Normal Inspection Upper Extremity: Present: Normal ROM Lower Extremity: Present: Normal ROM Neurological: Present: GCS=15, Speech Normal Skin: Present: Warm, Dry, Normal Color. No: Rashes Psychiatric: Present: Alert, Oriented x 3 <Maryan Eldridge - Last Filed: 12/19/17 17:38> Vital Signs Temp Pulse Pulse Resp BP Pulse Ox 12/19/17 17:46 98.2 F 65 18 132/55 L 95 12/19/17 15:25 98.2 F 71 18 129/62 96 12/19/17 13:30 98.3 F 68 18 122/64 97 12/19/17 10:30 69 12/19/17 10:17 98.6 F 76 20 100/67 96 <Son Evans - Last Filed: 12/22/17 18:52> Medical Decision Making ED Course and Treatment: 12/19/17 11:04 pt with chest pain ; cbc; wnl cmp; bun; 28 cr; 0.8 trop: wnl ekg; NSR at 73 b/m , left axis deviation, LVH cxr wnl ASA PO toradol and protonix given IV pt reassessment; pt with continued cP heart score; 4. case discussed with Dr. zamora. will Admit observational status to Tele for chest pain r/o acs. consult dr. fairchild. impression; chest pain Admit observational status to tele - RAD Interpretation Radiology Orders: 12/19/17 10:26 CHEST PORTABLE [RAD] Stat <Maryan Eldridge - Last Filed: 12/19/17 17:38> - Lab Interpretations Lab Results: 12/19/17 11:00 12/19/17 11:00 Lab Results 12/19/17 11:50: Urine Color Yellow, Urine Appearance Clear, Urine pH 6.5, Ur Specific [place] 1.010, Urine Protein Negative, Urine Glucose (UA) Negative, Urine Ketones Negative, Urine Blood Trace-intact H, Urine Nitrate Negative, Urine Bilirubin Negative, Urine Urobilinogen 0.2, Ur Leukocyte Esterase Trace H, Urine RBC 2 - 5, Urine WBC 5 - 10, Ur Epithelial Cells 6 - 8, Urine Bacteria Many 12/19/17 11:00: Sodium 139, Potassium 3.5 L, Chloride 98, Carbon Dioxide 34 H, Anion Gap 10, BUN 25 H, Creatinine 0.8, Est GFR ( Amer) > 60, Est GFR (Non-Af Amer) > 60, Random Glucose 106, Calcium 9.0, Magnesium 1.9, Total Bilirubin 0.2, AST 30, ALT 24, Alkaline Phosphatase 105, Lactate Dehydrogenase 546, Total Creatine Kinase 113, Troponin I < 0.01, Total Protein 7.7, Albumin 4.0, Globulin 3.7, Albumin/Globulin Ratio 1.1, Lipase 66 12/19/17 11:00: WBC 5.8, RBC 3.91, Hgb 10.5 L, Hct 33.4 L, MCV 85.4, MCH 26.9, MCHC 31.4, RDW 13.9, Plt Count 228, MPV 9.0, Gran % 74.1 H, Lymph % (Auto) 17.1 L, [place] % (Auto) 6.7 H, Eos % (Auto) 1.9, Baso % (Auto) 0.2, Gran # 4.30, Lymph # (Auto) 1.0 L, [place] # (Auto) 0.4, Eos # (Auto) 0.1, Baso # (Auto) 0.01 - RAD Interpretation Radiology Orders: 12/19/17 10:26 CHEST PORTABLE [RAD] Stat - Medication Orders Current Medication Orders: Discontinued Medications Acetaminophen (Tylenol 325mg Tab) 650 mg PO STAT STA Stop: 12/20/17 01:20 Last Admin: 12/20/17 01:30 Dose: 650 mg [facility] Pain/Vitals Document 12/20/17 01:30 CDL (Rec: 12/20/17 06:15 CDL [id number]) Presence of Pain Presence of Pain Yes Pain Scale Used Protocol: PSCALES Pain Scale Used Numeric Location Left, Right or Bilateral Left Pain Location Body Site Chest Description Intermittent Intensity 6 Scale Used Numeric Pain Behavior Restlessness Alleviating Factors Medication Re-Assess: [facility] Pain/Vitals Document 12/20/17 02:30 CDL (Rec: 12/20/17 06:21 CDL [id number]) Pain Reassessment Is This A Pain ReAssessment? Yes Sleep Is patient sleeping during reassessment? Yes Aspirin (Aspirin) 325 mg PO STAT STA Stop: 12/19/17 11:51 Last Admin: 12/19/17 12:23 Dose: 325 mg Aspirin (Ecotrin) 81 mg PO DAILY [facility] Last Admin: 12/21/17 09:37 Dose: 81 mg Ibuprofen (Motrin Tab) 400 mg PO TID [facility] Stop: 12/20/17 18:01 Last Admin: 12/20/17 17:51 Dose: 400 mg MAR Pain/Vitals Document 12/20/17 17:51 JZA (Rec: 12/20/17 17:52 JZA [id number]) Pain Reassessment Is This A Pain ReAssessment? Yes Sleep Is patient sleeping during reassessment? No Presence of Pain Presence of Pain Yes Pain Scale Used Protocol: PSCALES Pain Scale Used Numeric Location Pain Location Body Site breast Description Intermittent Intensity 7 Scale Used Numeric Pain Behavior Guarding Aggravating Factors Changing Position Alleviating Factors Medication Influenza Virus Vaccine (Flucelvax Quad 7665-2555 Syr) 60 mcg IM .ONCE ONE Stop: 12/19/17 20:25 Ketorolac Tromethamine (Toradol) 15 mg IVP STAT STA Stop: 12/19/17 12:15 Last Admin: 12/19/17 12:54 Dose: 15 mg MAR Pain Assessment Document 12/19/17 12:54 EQ (Rec: 12/19/17 12:54 EQ [id number]) Pain Reassessment Is this a pain reassessment? No Sleep Is patient sleeping during reassessment? No Presence of Pain Presence of Pain Yes IVP Administration Document 12/19/17 12:54 EQ (Rec: 12/19/17 12:54 EQ [id number]) Charges for Administration # of IVP Administrations 1 Metoprolol Tartrate (Lopressor) 25 mg PO BID [facility] Last Admin: 12/21/17 09:36 Dose: 25 mg MAR Pulse and Blood Pressure Document 12/21/17 09:36 KMS (Rec: 12/21/17 09:37 KMS [id number]) Pulse Pulse Rate (60-90) 67 Blood Pressure Blood Pressure (100/60-150/90) 139/61 Oxycodone/Acetaminophen (Percocet 5/325 Mg Tab) 1 tab PO STAT STA Stop: 12/20/17 12:05 Last Admin: 12/20/17 12:22 Dose: 1 tab MAR Pain Assessment Document 12/20/17 12:22 KaylaMARIPOSA (Rec: 12/20/17 12:23 JMARIPOSA [id number]) Pain Reassessment Is this a pain reassessment? Yes Sleep Is patient sleeping during reassessment? No Presence of Pain Presence of Pain Yes Pain Scale Used Protocol: PSCALES Pain Scale Used Numeric Location Left, Right or Bilateral Bilateral Pain Location Body Site Breast Description Description Intermittent Intensity of Pain at present 7 Pain Behavior Guarding Aggravating Factors Changing Position Alleviating Factors/Management Medication Techniques Alleviating Factors Medication Pantoprazole Sodium (Protonix Inj) 40 mg IVP STAT STA Stop: 12/19/17 12:14 Last Admin: 12/19/17 12:55 Dose: 40 mg IVP Administration Document 12/19/17 12:55 EQ (Rec: 12/19/17 12:55 EQ [id number]) Charges for Administration # of IVP Administrations 1 Pantoprazole Sodium (Protonix Ec Tab) 40 mg PO 0600 [facility] Last Admin: 12/21/17 05:29 Dose: 40 mg Phenytoin Sodium (Dilantin) 100 mg PO QAM [facility] Last Admin: 12/21/17 09:36 Dose: 100 mg Pneumococcal Polyvalent Vaccine (Pneumovax 23 Vaccine) 0.5 ml IM .ONCE ONE Stop: 12/19/17 20:25 <Son Evans - Last Filed: 12/22/17 18:52> - PA / DISPATCHER CLERK / Resident Statement / has reviewed & agrees with the documentation as recorded. <Son Evans - Last Filed: 12/22/17 18:52> Disposition/Present on Arrival - Present on Arrival Any Indicators Present on Arrival: No History of DVT/PE: No History of Uncontrolled Diabetes: No Urinary Catheter: No History of Decub. Ulcer: No History Surgical Site Infection Following: None - Disposition Have Diagnosis and Disposition been Completed?: Yes Disposition Time: 11:29 Patient Plan: Observation <Maryan Eldridge - Last Filed: 12/19/17 17:38> <Son Evans - Last Filed: 12/22/17 18:52> - Disposition Diagnosis: Chest pain Disposition: HOSPITALIZED Condition: FAIR
[2017-12-19 11:09] LABS: BASO # 0.01 K/mm3 (0.0-2.0); BASO % 0.2 % (0.0-3.0); EOS # 0.1 (0.0-0.7); EOS % 1.9 % (1.5-5.0); GRAN # 4.3 (1.4-6.5); GRAN % 74.1 % (50.0-68.0); HEMOGLOBIN 10.5 g/dL (12.0-16.0); LYMPH % 17.1 % (22.0-35.0); MEAN CELL VOLUME 85.4 fl (80.0-105.0); MEAN CORPUSCULAR HEMOGLOBIN 26.9 pg (25.0-35.0); MEAN CORPUSCULAR HGB CONC 31.4 g/dl (31.0-37.0); MONO # 0.4 (0.1-0.6); MONO % 6.7 % (1.0-6.0); RBC 3.91 10^6/uL (3.5-6.1); RED CELL DISTRIBUTION WIDTH 13.9 % (11.5-14.5); WHITE BLOOD COUNT 5.8 10^3/ul (4.5-11.0)
[2017-12-19 11:25] LABS: ALB/GLOB RATIO 1.1 (1.1-1.8); ALT/SGPT 24 U/L (7-56); AST/SGOT 30 U/L (14-36); BLOOD UREA NITROGEN 25 mg/dL (7-21); GFR NON-AFRICAN AMERICAN > 60; LIPASE 66 U/L (23-300)
--- NOTE | 2017-12-19 11:28 | RAD ---
Date of service: 12/19/2017 HISTORY: chest pain COMPARISON: 08/16/2016 FINDINGS: LUNGS: No active pulmonary disease. PLEURA: No significant pleural effusion identified, no pneumothorax apparent. CARDIOVASCULAR: Moderate cardiomegaly OSSEOUS STRUCTURES: No significant abnormalities. VISUALIZED UPPER ABDOMEN: Normal. OTHER FINDINGS: None. IMPRESSION: No active disease.
[2017-12-19 11:31] LABS: TROPONIN I < 0.01 ng/mL
[2017-12-19 12:06] LABS: PH,URINE 6.5 (4.7-8.0); URINE BILIRUBIN NEGATIVE (NEGATIVE); URINE BLOOD TRACE-INTACT (NEGATIVE); URINE GLUCOSE (UA) NEGATIVE (NEGATIVE); URINE LEUKOCYTE ESTERASE TRACE Leu/uL (NEGATIVE); URINE PROTEIN NEGATIVE mg/dL (<30 mg/dL); URINE UROBILINOGEN 0.2 E.U./dL (<1 E.U./dL)
[2017-12-19 12:33] LABS: URINE APPEARANCE CLEAR (CLEAR); URINE COLOR YELLOW (YELLOW)
[2017-12-19 12:39] LABS: URINE BACTERIA MANY (NEG)
--- NOTE | 2017-12-19 15:12 | CARD ---
APPROVED REPORT Date of service: 12/19/2017 EKG Measurement Heart [id number] <Conclusion> Normal sinus rhythm Left axis deviation Minimal voltage criteria for LVH, may be normal variant Abnormal ECG
[2017-12-19] MEDS ORDERED: Pneumococcal 23-Valent Vaccine IM ONE (20:24)
[2017-12-19] MEDS ORDERED: Influenza Vaccine 60 mcg/0.5 mL SYR (4YR UP) IM ONE (20:24)
[2017-12-19 21:09] LABS: TROPONIN I < 0.01 ng/mL
--- NOTE | 2017-12-19 23:55 | HP ---
HISTORY OF PRESENT ILLNESS: The patient is a 77-year-old Black female, known to me from multiple previous admissions. She states for the last 2 days, she has been having squeezing, moving chest pain, radiating from right to the left from the neck to the shoulder and then come to the front of the chest. Some time, it is related to certain movements. It has no relation with food. She has been thinking this could be because of gas. Denies any fever or chills. No cough. No congestion. There is no history of fall. No headache. No dizziness. No nausea or vomiting. No diarrhea. The patient had stress test done in 2014 and it was unremarkable. Had cardiac cath done in 2016, it was unremarkable. PAST MEDICAL HISTORY: Her past medical history also significant for, 1. Seizure disorder. 2. Hypertension. 3. Hyperlipidemia. 4. Peripheral vascular disease. ALLERGIES: SHE IS ALLERGIC TO PENICILLIN. MEDICATIONS AT HOME: She is on Dilantin 100 mg three times a day, Protonix 40 daily. She is on metoprolol 50 mg daily, aspirin 81 daily and Percocet as needed, Flexeril 5 mg three times a day. SOCIAL HISTORY: She used to be a smoker in the past, but does not smoke for the last couple of years. Denies alcohol use. PHYSICAL EXAMINATION: GENERAL: On examination, complained of chest discomfort, but feels a little better. On examination, she is awake, alert, oriented, communicative. VITAL SIGNS: She is afebrile, pulse 65, respirations 18, blood pressure 132/55. LUNGS: Bilateral fair airflow. No rhonchi or crackle. HEART: S1 and S2 audible. ABDOMEN: Soft. Nontender. No rebound. No guarding. NEUROLOGICAL: She is awake, alert, oriented, communicative. Moves all extremity. No focal deficit. EXTREMITIES: Bilateral leg, +1 edema. LABORATORY EXAM: WBC is 5.8, hemoglobin 10.5, hematocrit 33.4, platelet of 228. Chemistry: Sodium 139, potassium 3.5, chloride 98, CO2 of 34, BUN 25, creatinine of 0.8, blood sugar of 106. Urinalysis shows trace leukocyte and positive epithelial cell. X-ray chest is unremarkable. EKG shows normal sinus rhythm, left axis deviation, minimal voltage criteria. ASSESSMENT: 1. Chest pain, seems to be atypical. 2. History of hypertension. 3. Seizure disorder, probably musculoskeletal pain. 4. Bilateral knee osteoarthritis. PLAN: We will place the patient in observation. Follow up cardiac enzymes. Start her on NSAID. If the patient remains stable, chest pain free, no further cardiac workup is done and possible discharge in the a.m. Epifanio Cruz MD
--- NOTE | 2017-12-20 05:40 | CON ---
DATE: 12/19/2017 REASON FOR CONSULTATION: Cardiac evaluation, chest pain with tenderness. BRIEF CLINICAL HISTORY: This is a 77-year-old female with past medical history significant for nonobstructive coronary artery disease, status post cardiac catheterization done, history of hypertension, diabetes, hyperlipidemia, orthostatic hypotension, seizure disorder, gout, admitted with complaint of chest pain, left sided, radiating to whole side of the breast and very tender. The patient lives in the day care. The chest pain is off and on since Friday, so decided to come to the ER. Denies any recent history of chest pain or dyspnea on exertion. PAST MEDICAL HISTORY: Significant for hypertension, diabetes, hyperlipidemia, orthostatic hypotension, seizure disorder, arthritis, and gout. SOCIAL HISTORY: Denies any smoking, denies any history of alcohol abuse. PREVIOUS CARDIAC WORKUP: As follows: The patient had a cardiac catheterization done by Dr. George Bowers, [facility], 01/03/2015, which shows non-obstructive coronary artery disease, essentially normal cardiac catheterization, normal coronaries, ejection fraction 55%. The patient has a schedule to go to see Dr. George Bowers on Friday. The patient had a repeat catheterization on 04/11/2015 at [facility], that shows no angiographic evidence of obstructive coronary artery disease, normal LV function. The patient had echocardiography on 07/06/2014 that shows ejection fraction of 65%, normal LV segmental wall, [id number]-lx-vdfopyna aortic regurgitation, xxhu-zw-zesrojlx mitral regurgitation, lcjf-ep-blvszctq tricuspid regurgitation. CURRENT MEDICATION: The patient is taking prednisone 20 mg daily, oxycodone one tablet daily, phenytoin sodium/Dilantin 100 mg daily, Protonix 40 mg daily, Metoprolol Tartrate 50 mg twice a day, Flexeril 5 mg daily, aspirin 81 mg daily. REVIEW OF SYSTEMS: As per HPI. PHYSICAL EXAMINATION: VITAL SIGNS: Height of the patient 5 feet 4 inches, weight of the patient 205 pounds with body mass index 35.2 kg/m2. Rest of the vitals, temperature afebrile at 98.2, heart rate 65, blood pressure 132/55. HEENT: PERRLA. Extraocular muscles intact. NECK: Supple. No carotid bruit or thyromegaly. CHEST: Clear to auscultation. HEART: S1 and S2, regular. ABDOMEN: Soft. EXTREMITIES: Clubbing, cyanosis negative. LABORATORY DATA: EKG shows normal sinus, mild LVH, nonspecific ST-T changes noted. Chest x-ray reviewed, underpenetration films, no acute CHF or pneumonia noted though it is a very poor quality of chest x-ray. Mediastinum appears wide, but unable to see because of again poor quality of the film. Blood workup as follows: WBC 5.8, hemoglobin 10.5, hematocrit 33.4, platelet count 228. Chemistry showed sodium 139, potassium 3.5, chloride 98, carbon dioxide 34, anion gap of 10. BUN 25, creatinine 0.5. Troponin 0.01. Tenderness noted in the chest. IMPRESSION: A 77-year-old female with past medical history significant for diabetes, hypertension, hyperlipidemia, seizure disorder, arthritis, and gout, being followed by Dr. George Bowers, and had a cardiac catheterization on 01/03/2015 and most recently 2016 again cardiac catheterization done that revealed normal coronaries essentially, preserved left ventricular function. Last echo dated 07/06/2014, ejection fraction of 16%, syaj-kt-chmrkaeh mitral regurgitation, zhsb-gn-ajlkrvbg tricuspid regurgitation, RV systolic pressure of 45, bijg-za-kaetbeot aortic regurgitation. Chest pain tenderness with atypical tenderness. Given the multiple risk factors for coronary artery disease, I suggested followup serial CPK, troponin, lipid profile, TSH, hemoglobin A1c. If the serial troponin, CPK remains negative, the patient can be discharged home. Follow up with Dr. Bowers. Thank you Dr. Cruz for providing us the opportunity in taking care of the patient [place]. We will get echo to assess left ventricular function. Darrick Perez MD cc: Epifanio Cruz MD
[2017-12-20] MEDS: Pantoprazole 40 mg EC Tab PO SCH (06:14)
[2017-12-20 07:26] LABS: EOS # 0.1 (0.0-0.7); EOS % 2.5 % (1.5-5.0); GRAN # 3.71 (1.4-6.5); GRAN % 72.8 % (50.0-68.0); HEMOGLOBIN 10.2 g/dL (12.0-16.0); LYMPH # 0.8 (1.2-3.4); LYMPH % 16.3 % (22.0-35.0); MEAN CELL VOLUME 85.3 fl (80.0-105.0); MEAN CORPUSCULAR HEMOGLOBIN 26.8 pg (25.0-35.0); MEAN CORPUSCULAR HGB CONC 31.5 g/dl (31.0-37.0); MEAN PLATELET VOLUME 9.3 fl (7.0-11.0); MONO # 0.4 (0.1-0.6); MONO % 8.4 % (1.0-6.0); RBC 3.8 10^6/uL (3.5-6.1); RED CELL DISTRIBUTION WIDTH 13.8 % (11.5-14.5); WHITE BLOOD COUNT 5.1 10^3/ul (4.5-11.0)
[2017-12-20 07:48] LABS: ALB/GLOB RATIO 1.1 (1.1-1.8); ALBUMIN 3.6 g/dL (3.0-4.8); ALT/SGPT 22 U/L (7-56); AST/SGOT 32 U/L (14-36); BLOOD UREA NITROGEN 21 mg/dL (7-21); CALCIUM 8.9 mg/dL (8.4-10.5); GFR NON-AFRICAN AMERICAN > 60; HDL CHOLESTEROL 69 mg/dL (29-60)
[2017-12-20 07:53] LABS: TROPONIN I < 0.01 ng/mL
[2017-12-20 07:59] LABS: LDL CHOLESTEROL 51 mg/dL (0-129)
[2017-12-20] MEDS ORDERED: Oxycodone/Acetaminophen 5/325 mg Tab PO STA (12:04)
[2017-12-20 12:11] VITALS: O2SAT 100
[2017-12-21] MEDS: Pantoprazole 40 mg EC Tab PO SCH (05:29)
[2017-12-21 12:47] VITALS: BP 119/66; PULSE 66; RESP 20; TEMP 99
--- NOTE | 2017-12-21 14:38 | DS ---
HISTORY OF PRESENT ILLNESS: The patient is 77 years old, who is still complaining of chest pain, more so in certain movement, coughing and sneezing. She does not want to go home. She states that "there is nobody at home to take of me." PHYSICAL EXAMINATION: GENERAL: On examination, she is sitting in chair, she seems to be comfortable. VITAL SIGNS: She is afebrile, pulse 63, respirations 16, blood pressure 112/59. LUNGS: Bilateral fair airflow. No rhonchi or crackle. HEART: S1, S2 audible. ABDOMEN: Soft, obese, nontender, no rebound, no guarding. NEUROLOGIC: She is awake, alert, oriented, able to communicate. Ambulatory. She has palpable discomfort in the left chest area. LABORATORY DATA: WBC 5.1, hemoglobin 10.2, hematocrit 32.4, platelets 235. Chemistry; sodium 137, potassium 3.5, chloride 98, CO2 of 34, BUN 21, creatinine 0.8, blood sugar of 101. ASSESSMENT AND PLAN: CT scan of chest is ordered. We will give her a dose of Percocet. We will follow CT scan. If it is negative, she can be discharged later on today. Epifanio Cruz MD (Delete this signature block when dictator is a preceptor.) cc: MD Dulce Maria (Delete if not dictated.)
--- NOTE | 2017-12-21 15:13 | CT ---
Date of service: 12/20/2017 PROCEDURE: CT Chest without contrast HISTORY: related to chest pain COMPARISON: 03/17/2015 TECHNIQUE: Contiguous axial images were obtained through the chest without intravenous contrast enhancement. Sagittal and coronal reconstructions were performed. Radiation dose (DLP): 949.49 mGy-cm. This CT exam was performed using one or more of the following dose reduction techniques: Automated exposure control, adjustment of the mA and/or kV according to patient size, and/or use of iterative reconstruction technique. FINDINGS: LUNGS: No infiltrate. Minimal linear scar/atelectasis in right lower lobe. 5 mm nodule in left lower lobe (series 3, image 75). No follow-up required as per Fleischner society criteria. No other pulmonary mass. MEDIASTINUM: Unremarkable thoracic aorta. No aneurysm. Normal sized heart. Main pulmonary artery unremarkable. No vascular congestion. No lymphadenopathy. Incidental 13 mm nodule arising from the lower pole right lobe of the thyroid. This is seen in retrospect on 03/17/2015. Correlate with thyroid ultrasound examination. PLEURA: No pleural fluid. No pneumothorax. BONES: No fracture. No destructive lesion. UPPER ABDOMEN: 2.0 cm rounded low-attenuation mass in the posterior right hepatic lobe. This is unchanged from 12/03/2017 CT abdomen/pelvis. Nonspecific. In retrospect, it is increased slightly in size from prior chest CT of 03/17/2015. Correlate with ultrasound examination is suggested. OTHER FINDINGS: None. IMPRESSION: No pulmonary infiltrate. Nonspecific 5 mm nodule in left lower lobe. 13 mm nodule in lower pole right lobe of thyroid. Correlate with thyroid ultrasound examination. 2.0 cm rounded low-attenuation mass in posterior right hepatic lobe. Correlate with ultrasound examination.
--- NOTE | 2017-12-22 05:05 | DS ---
HISTORY OF PRESENT ILLNESS: Patient is 77 years old seen and examined, had chest pain yesterday, but responded to an anti-inflammatory. Feels a little better today. PHYSICAL EXAMINATION: GENERAL: She is awake, alert, oriented, and communicate. She states she feels much better today. VITAL SIGNS: She is afebrile, pulse 66, respirations 20, and blood pressure 119/66. LUNGS: Bilateral fair airflow. No rhonchi or crackle. HEART: S1 and S2 audible. ABDOMEN: Soft and nontender. No rebound. No guarding. NEUROLOGIC: Patient is awake, alert, oriented, and communicative. LABORATORY DATA: Three sets of cardiac enzymes are negative. HDL is 69. TSH is 0.25. Urinalysis is unremarkable. ASSESSMENT: 1. Noncardiac chest pain. 2. Hypertension. 3. Hyperlipidemia. 4. Seizure disorder. 5. Bilateral knee osteoarthritis. 6. Peripheral vascular disease. PLAN: Patient is clinically she was doing well and she is being discharged home. She has Mobic at home. She will be given Percocet as needed. She will follow up in office in a . Epifanio Cruz MD
== END 2017-12-21 14:10 | disposition home or self-care (01) ==
LOC: ED 09:59 → ERH 12:11 → 2RNO 17:58
PROVIDERS: ADMIT Internal Medicine; ATTEND Internal Medicine
DX: R07.89 Other chest pain (principal); E11.51 Type 2 diabetes mellitus with diabetic peripheral angiopathy without gangrene; I25.10 Atherosclerotic heart disease of native coronary artery without angina pectoris; I10 Essential (primary) hypertension; M17.0 Bilateral primary osteoarthritis of knee; I08.3 Combined rheumatic disorders of mitral, aortic and tricuspid valves; G40.909 Epilepsy, unspecified, not intractable, without status epilepticus; E78.5 Hyperlipidemia, unspecified; M10.9 Gout, unspecified; Z88.0 Allergy status to penicillin; Z87.891 Personal history of nicotine dependence
CPT/HCPCS: 36415; 71045; 71250; 80053; 80061; 81001; 82550; 83615; 83690; 83735; 84100; 84443; 84484; 85025; 87086; 93005; 96374; 96375; 99285; C9113; G0378; J1885